=== PATIENT | male | born 1955 | race Caucasian/White ===

== ENCOUNTER 2017-12-06 20:10 | Inpatient (IN) | payer OTHER ==
[2017-12-06] MEDS ORDERED: ONDANSETRON 4 MG TAB PO (22:30)
[2017-12-06] MEDS ORDERED: GLUCOSE GEL 15 GRAM TUBE PO ×2 (23:00)
[2017-12-06] MEDS ORDERED: DEXTROSE 50% 50 ML SYRINGE IV ×2 (23:00)
[2017-12-06] MEDS ORDERED: BISACODYL 10 MG SUPP PR (23:00)
[2017-12-06] MEDS ORDERED: GLUCAGON 1 MG INJ IM (23:00)
[2017-12-06] MEDS ORDERED: GLUCOSE GEL 15 GRAM TUBE BUCCAL (23:00)
[2017-12-07 00:51] LABS: ADD UMIC NO; UR ASCORBIC ACID NEGATIVE (NEGATIVE); UR BILIRUBIN (Dip) NEGATIVE (NEGATIVE); UR BLOOD (Dip) NEGATIVE (NEGATIVE); UR CLARITY CLEAR (CLEAR); UR COLOR YELLOW (YELLOW); UR GLUCOSE (Dip) NEGATIVE (NEGATIVE); UR KETONES (Dip) NEGATIVE (NEGATIVE); UR LEUKOCYTE ESTERASE (Dip) NEGATIVE Leu/ul (NEGATIVE); UR NITRITE (Dip) NEGATIVE (NEGATIVE); UR SPECIFIC GRAVITY (Dip) 1.025 (1.003-1.030); UR TOTAL PROTEIN (Dip) NEGATIVE (NEGATIVE); UR UROBILINOGEN (Dip) 2+ mg/dL (NEGATIVE)
[2017-12-07] MEDS: ACCUCHECK AT 2AM (Patients on SS coverage) XX (02:00)
[2017-12-07] MEDS: Insulin NOVOLOG SS MILD Algorithm (SS with meals and bedtime) SC ×4 (07:05→20:45)
[2017-12-07 07:06] LABS: ADD MAN DIFF? NO
[2017-12-07 07:08] LABS: BASOPHILS % 0.3 % (0.0-2.0); EOSINOPHILS # 0.1 10^3/ul (0.0-0.5); EOSINOPHILS % 1.1 % (0.0-7.0); HEMATOCRIT 44.3 % (42.0-52.0); HEMOGLOBIN 15.3 g/dl (14.0-18.0); LYMPHOCYTES # 1.5 10^3/ul (0.8-2.9); LYMPHOCYTES % 11.9 % (15.0-51.0); MEAN CORPUSCULAR HEMOGLOBIN 32.9 pg (29.0-33.0); MEAN CORPUSCULAR HGB CONC 34.5 g/dl (32.0-37.0); MEAN CORPUSCULAR VOLUME 95.3 fl (82.0-101.0); MEAN PLATELET VOLUME 9.4 fl (7.4-10.4); MONOCYTE # 0.9 10^3/ul (0.3-0.9); NEUTROPHIL # 9.9 10^3/ul (1.6-7.5); NEUTROPHILS % 79.2 % (39.0-77.0); PLATELET COUNT 249 10^3/UL (140-415); RED BLOOD COUNT 4.65 10^6/ul (4.70-6.10); RED CELL DISTRIBUTION WIDTH 13.8 % (11.5-14.5)
[2017-12-07 07:08] LABS: WHITE BLOOD COUNT 12.5 10^3/ul (4.8-10.8)
[2017-12-07] MEDS: ACCU-CHEK XX ×4 (07:45→20:47)
[2017-12-07 07:55] LABS: ALANINE AMINOTRANSFERASE 35 IU/L (13-69); ALBUMIN 3.9 g/dl (3.3-4.9); ALBUMIN/GLOBULIN RATIO 1.44; ALKALINE PHOSPHATASE 93 IU/L (42-121); ANION GAP 13 (8-16); ASPARTATE AMINO TRANSFERASE 43 IU/L (15-46); BILIRUBIN,INDIRECT 0.8 mg/dl (0-1.1); BILIRUBIN,TOTAL 0.8 mg/dl (0.2-1.3); BLOOD UREA NITROGEN 42 mg/dl (7-20); CALCIUM 9.5 mg/dl (8.4-10.2); CARBON DIOXIDE 27 mmol/L (21-31); CHLORIDE 100 mmol/L (97-110); CREATININE 0.91 mg/dl (0.61-1.24); GLUCOSE 137 mg/dl (70-220); POTASSIUM 4.1 mmol/L (3.5-5.1); SODIUM 136 mmol/L (135-144); TOTAL PROTEIN 6.6 g/dl (6.1-8.1)
[2017-12-07] MEDS: CLOPIDOGREL 75 MG TAB PO (08:42)
[2017-12-07] MEDS: ESCITALOPRAM 10 MG TAB PO (08:43)
[2017-12-07] MEDS: AMLODIPINE 10 MG TAB PO (08:43)
[2017-12-07] MEDS: HYDROCHLOROTHIAZIDE 25 MG TAB PO (08:43)
[2017-12-07] MEDS: ASPIRIN (EC) 81 MG TAB PO (08:43)
[2017-12-07] MEDS: DOCUSATE SODIUM 100 MG CAP PO ×2 (08:43→20:42)
[2017-12-07] MEDS: metFORMIN 500 MG TAB PO (08:44)
[2017-12-07] MEDS: METOPROLOL (XL) 100 MG TAB PO (08:44)
[2017-12-07] MEDS: ATORVASTATIN 80 MG TAB PO (20:42)
[2017-12-07] MEDS: SENNA TAB PO (20:42)
[2017-12-08] MEDS: ACCUCHECK AT 2AM (Patients on SS coverage) XX (02:00)
[2017-12-08] MEDS: Insulin NOVOLOG SS MILD Algorithm (SS with meals and bedtime) SC ×3 (08:35→21:00)
[2017-12-08] MEDS: ACCU-CHEK XX ×3 (08:35→21:00)
[2017-12-08] MEDS: ESCITALOPRAM 10 MG TAB PO (10:57)
[2017-12-08] MEDS: CLOPIDOGREL 75 MG TAB PO (10:57)
[2017-12-08] MEDS: DOCUSATE SODIUM 100 MG CAP PO ×2 (10:58→21:00)
[2017-12-08] MEDS: ASPIRIN (EC) 81 MG TAB PO (10:58)
[2017-12-08] MEDS: AMLODIPINE 10 MG TAB PO (10:59)
[2017-12-08] MEDS: METOPROLOL (XL) 100 MG TAB PO (11:02)
[2017-12-08] MEDS: HYDROCHLOROTHIAZIDE 25 MG TAB PO (11:03)
[2017-12-08] MEDS: SENNA TAB PO (21:00)
[2017-12-08] MEDS: ATORVASTATIN 80 MG TAB PO (21:00)
[2017-12-09] MEDS: ACCUCHECK AT 2AM (Patients on SS coverage) XX (01:01)
[2017-12-09] MEDS: ACCU-CHEK XX ×4 (07:05→21:21)
[2017-12-09] MEDS: Insulin NOVOLOG SS MILD Algorithm (SS with meals and bedtime) SC ×4 (07:05→21:00)
[2017-12-09] MEDS: CLOPIDOGREL 75 MG TAB PO (08:21)
[2017-12-09] MEDS: HYDROCHLOROTHIAZIDE 25 MG TAB PO (08:21)
[2017-12-09] MEDS: AMLODIPINE 10 MG TAB PO (08:21)
[2017-12-09] MEDS: DOCUSATE SODIUM 100 MG CAP PO ×2 (08:21→21:00)
[2017-12-09] MEDS: ASPIRIN (EC) 81 MG TAB PO (08:21)
[2017-12-09] MEDS: METOPROLOL (XL) 100 MG TAB PO (08:21)
[2017-12-09] MEDS: ESCITALOPRAM 10 MG TAB PO (08:21)
[2017-12-09] MEDS: LEVOFLOXACIN 500 MG TAB PO (15:13)
[2017-12-09] MEDS: SENNA TAB PO (21:00)
[2017-12-09] MEDS: ATORVASTATIN 80 MG TAB PO (21:16)
[2017-12-10] MEDS: ACCUCHECK AT 2AM (Patients on SS coverage) XX (02:00)
[2017-12-10] MEDS: LEVOFLOXACIN 500 MG TAB PO (06:14)
[2017-12-10] MEDS: Insulin NOVOLOG SS MILD Algorithm (SS with meals and bedtime) SC ×4 (07:05→21:00)
[2017-12-10] MEDS: ACCU-CHEK XX ×4 (08:05→21:26)
[2017-12-10] MEDS: CLOPIDOGREL 75 MG TAB PO (08:30)
[2017-12-10] MEDS: ASPIRIN (EC) 81 MG TAB PO (08:30)
[2017-12-10] MEDS: DOCUSATE SODIUM 100 MG CAP PO ×2 (08:30→21:26)
[2017-12-10] MEDS: AMLODIPINE 10 MG TAB PO (08:31)
[2017-12-10] MEDS: ESCITALOPRAM 10 MG TAB PO (08:31)
[2017-12-10] MEDS: METOPROLOL (XL) 100 MG TAB PO (08:32)
[2017-12-10] MEDS: HYDROCHLOROTHIAZIDE 25 MG TAB PO (08:32)
[2017-12-10] MEDS: metFORMIN (XR) 500 MG TAB PO ×2 (11:00→21:26)
[2017-12-10] MEDS: ATORVASTATIN 80 MG TAB PO (21:26)
[2017-12-10] MEDS: SENNA TAB PO (21:26)
[2017-12-11] MEDS: ACCUCHECK AT 2AM (Patients on SS coverage) XX (00:15)
[2017-12-11 06:59] LABS: ADD MAN DIFF? NO
[2017-12-11] MEDS: LEVOFLOXACIN 500 MG TAB PO (07:02)
[2017-12-11] MEDS: ACCU-CHEK XX ×4 (07:05→20:59)
[2017-12-11 07:06] LABS: BASOPHIL # 0.1 10^3/ul (0.0-0.1); BASOPHILS % 0.5 % (0.0-2.0); EOSINOPHILS # 0.2 10^3/ul (0.0-0.5); EOSINOPHILS % 2.1 % (0.0-7.0); HEMATOCRIT 45.6 % (42.0-52.0); HEMOGLOBIN 15.9 g/dl (14.0-18.0); LYMPHOCYTES # 2.7 10^3/ul (0.8-2.9); LYMPHOCYTES % 26.3 % (15.0-51.0); MEAN CORPUSCULAR HEMOGLOBIN 32.9 pg (29.0-33.0); MEAN CORPUSCULAR HGB CONC 34.9 g/dl (32.0-37.0); MEAN CORPUSCULAR VOLUME 94.2 fl (82.0-101.0); MEAN PLATELET VOLUME 9.2 fl (7.4-10.4); MONOCYTE # 0.9 10^3/ul (0.3-0.9); MONOCYTES % 8.6 % (0.0-11.0); NEUTROPHIL # 6.2 10^3/ul (1.6-7.5); NEUTROPHILS % 61.9 % (39.0-77.0); PLATELET COUNT 329 10^3/UL (140-415); RED BLOOD COUNT 4.84 10^6/ul (4.70-6.10); RED CELL DISTRIBUTION WIDTH 13.2 % (11.5-14.5)
[2017-12-11 07:06] LABS: WHITE BLOOD COUNT 10.1 10^3/ul (4.8-10.8)
[2017-12-11] MEDS: LORAZEPAM 2 MG INJ IM (07:27)
[2017-12-11 07:54] LABS: ALANINE AMINOTRANSFERASE 29 IU/L (13-69); ALBUMIN 3.5 g/dl (3.3-4.9); ALBUMIN/GLOBULIN RATIO 1.25; ALKALINE PHOSPHATASE 105 IU/L (42-121); ANION GAP 13 (8-16); ASPARTATE AMINO TRANSFERASE 25 IU/L (15-46); BILIRUBIN,INDIRECT 0.5 mg/dl (0-1.1); BILIRUBIN,TOTAL 0.5 mg/dl (0.2-1.3); BLOOD UREA NITROGEN 30 mg/dl (7-20); CALCIUM 9.6 mg/dl (8.4-10.2); CARBON DIOXIDE 28 mmol/L (21-31); CHLORIDE 102 mmol/L (97-110); GLUCOSE 138 mg/dl (70-220); POTASSIUM 3.8 mmol/L (3.5-5.1); SODIUM 139 mmol/L (135-144); TOTAL PROTEIN 6.3 g/dl (6.1-8.1)
[2017-12-11 08:03] LABS: MAGNESIUM 1.7 mg/dl (1.7-2.5)
[2017-12-11] MEDS: Insulin NOVOLOG SS MILD Algorithm (SS with meals and bedtime) SC ×4 (08:28→20:58)
[2017-12-11] MEDS: ESCITALOPRAM 10 MG TAB PO (08:38)
[2017-12-11] MEDS: HYDROCHLOROTHIAZIDE 25 MG TAB PO (08:38)
[2017-12-11] MEDS: CLOPIDOGREL 75 MG TAB PO (08:38)
[2017-12-11] MEDS: ASPIRIN (EC) 81 MG TAB PO (08:38)
[2017-12-11] MEDS: metFORMIN (XR) 500 MG TAB PO ×2 (08:39→20:40)
[2017-12-11] MEDS: AMLODIPINE 10 MG TAB PO (08:39)
[2017-12-11] MEDS: DOCUSATE SODIUM 100 MG CAP PO ×2 (08:39→20:40)
[2017-12-11] MEDS: METOPROLOL (XL) 100 MG TAB PO (08:43)
[2017-12-11] MEDS: LORAZEPAM 2 MG INJ IV (20:40)
[2017-12-11] MEDS: ATORVASTATIN 80 MG TAB PO (20:40)
[2017-12-11] MEDS: SENNA TAB PO (20:41)
[2017-12-11] MEDS: HALOPERIDOL 5 MG INJ IM (21:00)
[2017-12-12] MEDS: ACCUCHECK AT 2AM (Patients on SS coverage) XX (02:00)
[2017-12-12] MEDS: LEVOFLOXACIN 500 MG TAB PO (06:22)
[2017-12-12] MEDS: Insulin NOVOLOG SS MILD Algorithm (SS with meals and bedtime) SC ×4 (07:05→20:08)
[2017-12-12] MEDS: ACCU-CHEK XX ×4 (07:05→21:00)
[2017-12-12] MEDS: ASPIRIN (EC) 81 MG TAB PO ×2 (09:00→15:19)
[2017-12-12] MEDS: DOCUSATE SODIUM 100 MG CAP PO ×2 (09:00→20:06)
[2017-12-12] MEDS: AMLODIPINE 10 MG TAB PO (09:00)
[2017-12-12] MEDS: ESCITALOPRAM 10 MG TAB PO ×2 (09:00→15:20)
[2017-12-12] MEDS: METOPROLOL (XL) 100 MG TAB PO ×2 (09:00→15:22)
[2017-12-12] MEDS: metFORMIN (XR) 500 MG TAB PO ×2 (09:00→20:04)
[2017-12-12] MEDS: HYDROCHLOROTHIAZIDE 25 MG TAB PO (09:00)
[2017-12-12] MEDS: CLOPIDOGREL 75 MG TAB PO ×2 (09:00→15:20)
[2017-12-12] MEDS: ATORVASTATIN 80 MG TAB PO (20:06)
[2017-12-12] MEDS: SENNA TAB PO (20:06)
[2017-12-13] MEDS: ACCUCHECK AT 2AM (Patients on SS coverage) XX (02:00)
[2017-12-13] MEDS: LEVOFLOXACIN 500 MG TAB PO (06:13)
[2017-12-13] MEDS: ACCU-CHEK XX ×4 (07:05→21:00)
[2017-12-13] MEDS: Insulin NOVOLOG SS MILD Algorithm (SS with meals and bedtime) SC ×4 (07:05→21:00)
[2017-12-13] MEDS: CLOPIDOGREL 75 MG TAB PO (09:07)
[2017-12-13] MEDS: DOCUSATE SODIUM 100 MG CAP PO ×2 (09:08→21:00)
[2017-12-13] MEDS: HYDROCHLOROTHIAZIDE 25 MG TAB PO (09:08)
[2017-12-13] MEDS: metFORMIN (XR) 500 MG TAB PO ×2 (09:08→21:28)
[2017-12-13] MEDS: AMLODIPINE 10 MG TAB PO (09:08)
[2017-12-13] MEDS: METOPROLOL (XL) 100 MG TAB PO (09:08)
[2017-12-13] MEDS: ASPIRIN (EC) 81 MG TAB PO (09:08)
[2017-12-13] MEDS: ESCITALOPRAM 10 MG TAB PO (09:09)
[2017-12-13] MEDS: SENNA TAB PO (21:00)
[2017-12-13] MEDS: ACETAMINOPHEN 325 MG TAB PO (21:27)
[2017-12-13] MEDS: ATORVASTATIN 80 MG TAB PO (21:28)
[2017-12-14] MEDS: ACCUCHECK AT 2AM (Patients on SS coverage) XX (02:00)
[2017-12-14] MEDS: HYDROCODONE/APAP (5/325) TAB PO (03:28)
[2017-12-14] MEDS: LEVOFLOXACIN 500 MG TAB PO (06:39)
[2017-12-14] MEDS: ACCU-CHEK XX ×4 (07:05→21:09)
[2017-12-14] MEDS: Insulin NOVOLOG SS MILD Algorithm (SS with meals and bedtime) SC ×4 (07:05→20:56)
[2017-12-14] MEDS: metFORMIN (XR) 500 MG TAB PO ×2 (08:04→21:01)
[2017-12-14] MEDS: METOPROLOL (XL) 100 MG TAB PO (09:00)
[2017-12-14] MEDS: AMLODIPINE 10 MG TAB PO (09:13)
[2017-12-14] MEDS: ASPIRIN (EC) 81 MG TAB PO (09:13)
[2017-12-14] MEDS: CLOPIDOGREL 75 MG TAB PO (09:13)
[2017-12-14] MEDS: DOCUSATE SODIUM 100 MG CAP PO ×2 (09:13→21:02)
[2017-12-14] MEDS: HYDROCHLOROTHIAZIDE 25 MG TAB PO (09:13)
[2017-12-14] MEDS: ESCITALOPRAM 10 MG TAB PO (09:13)
[2017-12-14] MEDS: ACETAMINOPHEN 325 MG TAB PO ×2 (15:19→23:21)
[2017-12-14] MEDS: ATORVASTATIN 80 MG TAB PO (21:02)
[2017-12-14] MEDS: SENNA TAB PO (21:02)
[2017-12-15] MEDS: ACCUCHECK AT 2AM (Patients on SS coverage) XX (02:00)
[2017-12-15] MEDS: LEVOFLOXACIN 500 MG TAB PO (06:17)
[2017-12-15] MEDS: ACETAMINOPHEN 325 MG TAB PO (07:57)
[2017-12-15] MEDS: ACCU-CHEK XX ×4 (07:59→20:13)
[2017-12-15] MEDS: Insulin NOVOLOG SS MILD Algorithm (SS with meals and bedtime) SC ×4 (08:01→20:15)
[2017-12-15] MEDS: metFORMIN (XR) 500 MG TAB PO ×2 (08:31→20:11)
[2017-12-15] MEDS: ESCITALOPRAM 10 MG TAB PO (08:36)
[2017-12-15] MEDS: DOCUSATE SODIUM 100 MG CAP PO ×2 (08:36→20:11)
[2017-12-15] MEDS: HYDROCHLOROTHIAZIDE 25 MG TAB PO (08:38)
[2017-12-15] MEDS: METOPROLOL (XL) 100 MG TAB PO (08:38)
[2017-12-15] MEDS: ASPIRIN (EC) 81 MG TAB PO (08:38)
[2017-12-15] MEDS: CLOPIDOGREL 75 MG TAB PO (08:39)
[2017-12-15] MEDS: AMLODIPINE 10 MG TAB PO (08:39)
[2017-12-15] MEDS: ATORVASTATIN 80 MG TAB PO (20:10)
[2017-12-15] MEDS: SENNA TAB PO (20:11)
[2017-12-16] MEDS: ACETAMINOPHEN 325 MG TAB PO ×3 (00:09→14:03)
[2017-12-16] MEDS: HALOPERIDOL 5 MG INJ IM (01:33)
[2017-12-16] MEDS: ACCUCHECK AT 2AM (Patients on SS coverage) XX (02:00)
[2017-12-16] MEDS: LEVOFLOXACIN 500 MG TAB PO (06:11)
[2017-12-16] MEDS ORDERED: METOPROLOL 5 MG INJ (07:00)
[2017-12-16] MEDS: ACCU-CHEK XX ×3 (07:36→17:20)
[2017-12-16] MEDS: metFORMIN (XR) 500 MG TAB PO (07:39)
[2017-12-16] MEDS: Insulin NOVOLOG SS MILD Algorithm (SS with meals and bedtime) SC ×3 (07:39→17:05)
[2017-12-16] MEDS: ASPIRIN (EC) 81 MG TAB PO (09:44)
[2017-12-16] MEDS: CLOPIDOGREL 75 MG TAB PO (09:46)
[2017-12-16] MEDS: ESCITALOPRAM 10 MG TAB PO (09:46)
[2017-12-16] MEDS: DOCUSATE SODIUM 100 MG CAP PO (09:51)
[2017-12-16] MEDS: HYDROCHLOROTHIAZIDE 25 MG TAB PO (09:51)
[2017-12-16] MEDS: METOPROLOL (XL) 100 MG TAB PO (09:52)
[2017-12-16] MEDS: AMLODIPINE 10 MG TAB PO (09:53)
[2017-12-16] MEDS: MAGNESIUM HYDROXIDE 30ML CUP PO (09:53)
[2017-12-16] MEDS: BACLOFEN 10 MG TAB PO (14:13)
[2017-12-16] MEDS ORDERED: METOPROLOL 5 MG INJ IV (18:25)
[2017-12-16 18:38] LABS: ADD MAN DIFF? NO
[2017-12-16 18:39] LABS: WHITE BLOOD COUNT 15.9 10^3/ul (4.8-10.8)
[2017-12-16 18:39] LABS: BASOPHIL # 0.1 10^3/ul (0.0-0.1); BASOPHILS % 0.3 % (0.0-2.0); EOSINOPHILS # 0.1 10^3/ul (0.0-0.5); EOSINOPHILS % 0.5 % (0.0-7.0); HEMATOCRIT 45.1 % (42.0-52.0); HEMOGLOBIN 15.8 g/dl (14.0-18.0); LYMPHOCYTES # 1.7 10^3/ul (0.8-2.9); MEAN CORPUSCULAR HEMOGLOBIN 32.4 pg (29.0-33.0); MEAN CORPUSCULAR VOLUME 92.6 fl (82.0-101.0); MONOCYTE # 0.7 10^3/ul (0.3-0.9); MONOCYTES % 4.5 % (0.0-11.0); NEUTROPHIL # 13.2 10^3/ul (1.6-7.5); NEUTROPHILS % 83.1 % (39.0-77.0); PLATELET COUNT 396 10^3/UL (140-415); RED BLOOD COUNT 4.87 10^6/ul (4.70-6.10); RED CELL DISTRIBUTION WIDTH 12.9 % (11.5-14.5)
[2017-12-16 18:52] LABS: ANION GAP 25 (8-16); BLOOD UREA NITROGEN 40 mg/dl (7-20); CALCIUM 9.4 mg/dl (8.4-10.2); CARBON DIOXIDE 19 mmol/L (21-31); CHLORIDE 96 mmol/L (97-110); CREATININE 1.55 mg/dl (0.61-1.24); GLUCOSE 193 mg/dl (70-220); POTASSIUM 3.9 mmol/L (3.5-5.1); SODIUM 136 mmol/L (135-144)
[2017-12-16 19:04] LABS: TROPONIN-I 0.014 ng/ml (0.000-0.120)
== END 2017-12-16 18:40 | disposition short-term general hospital (02) | DRG 57 ==
LOC: VRC 20:10 → 6WM 12-16 19:03 → VRC 12-16 19:03
PROVIDERS: Physical Medicine & Rehabilitation
PROC: F07Z8ZZ Transfer Training Treatment (ICD-10-PCS; principal; 2017-12-09)
PROC: F07Z5ZZ Bed Mobility Treatment (ICD-10-PCS; 2017-12-09)
PROC: F07Z9ZZ Gait Training/Functional Ambulation Treatment (ICD-10-PCS; 2017-12-09)
PROC: F08Z1ZZ Dressing Techniques Treatment (ICD-10-PCS; 2017-12-09)
PROC: F08Z2ZZ Grooming/Personal Hygiene Treatment (ICD-10-PCS; 2017-12-09)
DX: I69.354 Hemiplegia and hemiparesis following cerebral infarction affecting left non-dominant side (principal); N39.0 Urinary tract infection, site not specified; F33.9 Major depressive disorder, recurrent, unspecified; E78.5 Hyperlipidemia, unspecified; E11.9 Type 2 diabetes mellitus without complications; R13.10 Dysphagia, unspecified; I10 Essential (primary) hypertension; Z79.4 Long term (current) use of insulin
CPT/HCPCS: 80048; 80053; 81003; 82962; 83036; 83735; 84484; 85025; 87081; 87086; 92507; 92610; 97110; 97112; 97116; 97163; 97167; 97530; 97535; 97542

== ENCOUNTER 2017-12-16 20:23 | Inpatient (IN) | payer OTHER ==
[2017-12-16] MEDS ORDERED: GLUCAGON 1 MG INJ IM (23:45)
[2017-12-16] MEDS ORDERED: DEXTROSE 50% 50 ML SYRINGE IV ×2 (23:45)
[2017-12-16] MEDS ORDERED: GLUCOSE GEL 15 GRAM TUBE BUCCAL (23:45)
[2017-12-16] MEDS ORDERED: GLUCOSE GEL 15 GRAM TUBE PO ×2 (23:45)
[2017-12-17] MEDS: DEXTROSE 5%-0.45% NACL 1,000 ML IV ×2 (00:11→15:06)
[2017-12-17] MEDS: METOPROLOL 25 MG TAB PO (00:11)
[2017-12-17] MEDS: INSULIN ASPART [NOVOLOG] 3 ML PEN SC ×6 (01:49→21:00)
[2017-12-17] MEDS ORDERED: ACCU-CHEK XX (02:00)
[2017-12-17] MEDS ORDERED: NACL 0.9% 3 ML SYG IV (06:00)
[2017-12-17] MEDS ORDERED: NITROGLYCERIN (SL) 0.4 MG TAB SL (06:00)
[2017-12-17] MEDS ORDERED: BISACODYL 10 MG SUPP PR (06:00)
[2017-12-17] MEDS ORDERED: ONDANSETRON 4 MG INJ IV (06:00)
[2017-12-17 07:42] LABS: ADD MAN DIFF? NO
[2017-12-17 07:46] LABS: WHITE BLOOD COUNT 11.7 10^3/ul (4.8-10.8)
[2017-12-17 07:46] LABS: BASOPHIL # 0.1 10^3/ul (0.0-0.1); BASOPHILS % 0.4 % (0.0-2.0); EOSINOPHILS # 0.1 10^3/ul (0.0-0.5); MEAN CORPUSCULAR HEMOGLOBIN 32.1 pg (29.0-33.0); MEAN CORPUSCULAR VOLUME 91.7 fl (82.0-101.0); MEAN PLATELET VOLUME 9.4 fl (7.4-10.4); MONOCYTE # 0.8 10^3/ul (0.3-0.9); MONOCYTES % 7.2 % (0.0-11.0); NEUTROPHIL # 8.7 10^3/ul (1.6-7.5); PLATELET COUNT 327 10^3/UL (140-415); RED BLOOD COUNT 4.36 10^6/ul (4.70-6.10); RED CELL DISTRIBUTION WIDTH 13.1 % (11.5-14.5)
[2017-12-17] MEDS: CLOPIDOGREL 75 MG TAB PO (08:08)
[2017-12-17] MEDS: ASPIRIN (EC) 81 MG TAB PO (08:08)
[2017-12-17] MEDS: BACLOFEN 10 MG TAB PO ×2 (08:08→21:00)
[2017-12-17] MEDS: AMLODIPINE 10 MG TAB PO (08:08)
[2017-12-17] MEDS: DOCUSATE SODIUM 100 MG CAP PO ×2 (08:08→21:00)
[2017-12-17] MEDS: ESCITALOPRAM 10 MG TAB PO (08:08)
[2017-12-17] MEDS: HYDROCHLOROTHIAZIDE 25 MG TAB PO (08:09)
[2017-12-17] MEDS: METOPROLOL (XL) 100 MG TAB PO (08:13)
[2017-12-17 08:15] LABS: CREATINE KINASE 130 IU/L (23-200)
[2017-12-17 08:21] LABS: ALANINE AMINOTRANSFERASE 27 IU/L (13-69); ALBUMIN 3.5 g/dl (3.3-4.9); ALBUMIN/GLOBULIN RATIO 1.59; ALKALINE PHOSPHATASE 149 IU/L (42-121); ANION GAP 14 (8-16); ASPARTATE AMINO TRANSFERASE 31 IU/L (15-46); BILIRUBIN,INDIRECT 0.3 mg/dl (0-1.1); BILIRUBIN,TOTAL 0.3 mg/dl (0.2-1.3); BLOOD UREA NITROGEN 48 mg/dl (7-20); CALCIUM 9.2 mg/dl (8.4-10.2); CARBON DIOXIDE 28 mmol/L (21-31); CHLORIDE 100 mmol/L (97-110); CREATININE 1.25 mg/dl (0.61-1.24); GLUCOSE 117 mg/dl (70-220); POTASSIUM 3.5 mmol/L (3.5-5.1); SODIUM 138 mmol/L (135-144); TOTAL PROTEIN 5.7 g/dl (6.1-8.1)
[2017-12-17 08:28] LABS: CK-MB 2.66 ng/ml (0.0-2.4); TROPONIN-I 0.028 ng/ml (0.000-0.120)
[2017-12-17 12:48] LABS: CREATINE KINASE 149 IU/L (23-200)
[2017-12-17 13:00] LABS: CK INDEX 1.9; CK-MB 2.89 ng/ml (0.0-2.4); TROPONIN-I 0.016 ng/ml (0.000-0.120)
[2017-12-17] MEDS: SENNA TAB PO (21:00)
[2017-12-17] MEDS: ATORVASTATIN 80 MG TAB PO (21:00)
[2017-12-18] MEDS: INSULIN ASPART [NOVOLOG] 3 ML PEN SC ×5 (01:00→17:27)
[2017-12-18] MEDS: DEXTROSE 5%-0.45% NACL 1,000 ML IV ×2 (05:42→17:27)
[2017-12-18 06:13] LABS: ADD MAN DIFF? NO
[2017-12-18 06:24] LABS: WHITE BLOOD COUNT 16.8 10^3/ul (4.8-10.8)
[2017-12-18 06:24] LABS: BASOPHIL # 0.1 10^3/ul (0.0-0.1); BASOPHILS % 0.3 % (0.0-2.0); EOSINOPHILS # 0.1 10^3/ul (0.0-0.5); EOSINOPHILS % 0.4 % (0.0-7.0); HEMATOCRIT 40.2 % (42.0-52.0); LYMPHOCYTES # 2.2 10^3/ul (0.8-2.9); MEAN CORPUSCULAR HEMOGLOBIN 32.6 pg (29.0-33.0); MEAN CORPUSCULAR HGB CONC 34.8 g/dl (32.0-37.0); MEAN CORPUSCULAR VOLUME 93.7 fl (82.0-101.0); MEAN PLATELET VOLUME 9.8 fl (7.4-10.4); MONOCYTES % 6.1 % (0.0-11.0); NEUTROPHIL # 13.4 10^3/ul (1.6-7.5); NEUTROPHILS % 79.5 % (39.0-77.0); PLATELET COUNT 331 10^3/UL (140-415); RED BLOOD COUNT 4.29 10^6/ul (4.70-6.10); RED CELL DISTRIBUTION WIDTH 13.2 % (11.5-14.5)
[2017-12-18 06:46] LABS: ANION GAP 16 (8-16); BLOOD UREA NITROGEN 52 mg/dl (7-20); CALCIUM 9.6 mg/dl (8.4-10.2); CARBON DIOXIDE 29 mmol/L (21-31); CHLORIDE 99 mmol/L (97-110); CREATININE 1.44 mg/dl (0.61-1.24); GLUCOSE 121 mg/dl (70-220); MAGNESIUM 2.4 mg/dl (1.7-2.5); PHOSPHORUS 4.1 mg/dl (2.5-4.9); POTASSIUM 3.8 mmol/L (3.5-5.1); SODIUM 140 mmol/L (135-144)
[2017-12-18] MEDS: CLOPIDOGREL 75 MG TAB PO (09:07)
[2017-12-18] MEDS: AMLODIPINE 10 MG TAB PO (09:08)
[2017-12-18] MEDS: ASPIRIN (EC) 81 MG TAB PO (09:08)
[2017-12-18] MEDS: DOCUSATE SODIUM 100 MG CAP PO ×2 (09:09→21:39)
[2017-12-18] MEDS: HYDROCHLOROTHIAZIDE 25 MG TAB PO (09:09)
[2017-12-18] MEDS: BACLOFEN 10 MG TAB PO ×2 (09:09→21:39)
[2017-12-18] MEDS: METOPROLOL (XL) 100 MG TAB PO (09:10)
[2017-12-18] MEDS: ESCITALOPRAM 10 MG TAB PO (09:10)
[2017-12-18] MEDS: ACETAMINOPHEN 325 MG TAB PO (09:11)
[2017-12-18] MEDS: Insulin NOVOLOG SS MILD Algorithm (SS with meals and bedtime) SC (21:00)
[2017-12-18] MEDS ORDERED: INSULIN ASPART [NOVOLOG] 3 ML PEN SC (21:00)
[2017-12-18] MEDS: ATORVASTATIN 80 MG TAB PO (21:38)
[2017-12-18] MEDS: SENNA TAB PO (21:38)
[2017-12-18] MEDS: LORAZEPAM 2 MG INJ IV (21:39)
[2017-12-19] MEDS: DEXTROSE 5%-0.45% NACL 1,000 ML IV ×2 (01:17→17:51)
[2017-12-19] MEDS: ACCUCHECK AT 2AM (Patients on SS coverage) XX (02:00)
[2017-12-19] MEDS: LORAZEPAM 2 MG INJ IV ×4 (03:44→22:50)
[2017-12-19 05:25] LABS: ADD MAN DIFF? NO
[2017-12-19 05:32] LABS: WHITE BLOOD COUNT 10.6 10^3/ul (4.8-10.8)
[2017-12-19 05:32] LABS: BASOPHILS % 0.3 % (0.0-2.0); EOSINOPHILS # 0.1 10^3/ul (0.0-0.5); EOSINOPHILS % 0.9 % (0.0-7.0); HEMATOCRIT 33.9 % (42.0-52.0); HEMOGLOBIN 12.1 g/dl (14.0-18.0); LYMPHOCYTES # 1.7 10^3/ul (0.8-2.9); LYMPHOCYTES % 15.5 % (15.0-51.0); MEAN CORPUSCULAR HEMOGLOBIN 32.6 pg (29.0-33.0); MEAN CORPUSCULAR HGB CONC 35.7 g/dl (32.0-37.0); MEAN CORPUSCULAR VOLUME 91.4 fl (82.0-101.0); MEAN PLATELET VOLUME 9.8 fl (7.4-10.4); MONOCYTE # 0.7 10^3/ul (0.3-0.9); NEUTROPHIL # 8.1 10^3/ul (1.6-7.5); NEUTROPHILS % 75.6 % (39.0-77.0); PLATELET COUNT 272 10^3/UL (140-415); RED BLOOD COUNT 3.71 10^6/ul (4.70-6.10)
[2017-12-19 06:45] LABS: ANION GAP 9 (8-16); BLOOD UREA NITROGEN 38 mg/dl (7-20); CALCIUM 8.8 mg/dl (8.4-10.2); CARBON DIOXIDE 30 mmol/L (21-31); CHLORIDE 99 mmol/L (97-110); CREATININE 0.86 mg/dl (0.61-1.24); GLUCOSE 132 mg/dl (70-220); SODIUM 136 mmol/L (135-144)
[2017-12-19 06:58] LABS: POTASSIUM 2.4 mmol/L (3.5-5.1)
[2017-12-19] MEDS ORDERED: POTASSIUM CHLORIDE (SR) 20 MEQ TAB PO ×2 (07:00→07:04)
[2017-12-19] MEDS: POTASSIUM CHLORIDE (SR) 20 MEQ TAB PO ×2 (07:44→09:01)
[2017-12-19] MEDS: Insulin NOVOLOG SS MILD Algorithm (SS with meals and bedtime) SC ×4 (07:48→20:51)
[2017-12-19 07:58] LABS: MAGNESIUM 1.9 mg/dl (1.7-2.5)
[2017-12-19] MEDS: ASPIRIN (EC) 81 MG TAB PO (08:58)
[2017-12-19] MEDS: HYDROCHLOROTHIAZIDE 25 MG TAB PO (08:58)
[2017-12-19] MEDS: METOPROLOL (XL) 100 MG TAB PO (08:59)
[2017-12-19] MEDS: DOCUSATE SODIUM 100 MG CAP PO ×2 (08:59→20:27)
[2017-12-19] MEDS: BACLOFEN 10 MG TAB PO ×2 (08:59→20:27)
[2017-12-19] MEDS: AMLODIPINE 10 MG TAB PO (08:59)
[2017-12-19] MEDS: ESCITALOPRAM 10 MG TAB PO (08:59)
[2017-12-19] MEDS: CLOPIDOGREL 75 MG TAB PO (08:59)
[2017-12-19] MEDS: ENOXAPARIN 40 MG/0.4 ML SYG SC (08:59)
[2017-12-19] MEDS: SENNA TAB PO (20:27)
[2017-12-19] MEDS: ATORVASTATIN 80 MG TAB PO (20:27)
[2017-12-19] MEDS: ACETAMINOPHEN 325 MG TAB PO (22:58)
[2017-12-20] MEDS: ACCUCHECK AT 2AM (Patients on SS coverage) XX (02:07)
[2017-12-20] MEDS: LORAZEPAM 2 MG INJ IV ×4 (02:29→22:50)
[2017-12-20 05:37] LABS: ADD MAN DIFF? NO
[2017-12-20 05:43] LABS: BASOPHILS % 0.3 % (0.0-2.0); EOSINOPHILS # 0.1 10^3/ul (0.0-0.5); HEMATOCRIT 32.3 % (42.0-52.0); HEMOGLOBIN 11.3 g/dl (14.0-18.0); LYMPHOCYTES # 1.6 10^3/ul (0.8-2.9); LYMPHOCYTES % 14.2 % (15.0-51.0); MEAN CORPUSCULAR HEMOGLOBIN 32.5 pg (29.0-33.0); MEAN CORPUSCULAR VOLUME 92.8 fl (82.0-101.0); MEAN PLATELET VOLUME 9.8 fl (7.4-10.4); MONOCYTE # 0.7 10^3/ul (0.3-0.9); MONOCYTES % 6.7 % (0.0-11.0); NEUTROPHIL # 8.5 10^3/ul (1.6-7.5); NEUTROPHILS % 77.4 % (39.0-77.0); PLATELET COUNT 243 10^3/UL (140-415); RED BLOOD COUNT 3.48 10^6/ul (4.70-6.10)
[2017-12-20 06:18] LABS: MAGNESIUM 1.7 mg/dl (1.7-2.5)
[2017-12-20 06:18] LABS: PHOSPHORUS 3.9 mg/dl (2.5-4.9)
[2017-12-20 06:26] LABS: ANION GAP 7 (8-16); BLOOD UREA NITROGEN 24 mg/dl (7-20); CALCIUM 9.3 mg/dl (8.4-10.2); CARBON DIOXIDE 31 mmol/L (21-31); CHLORIDE 102 mmol/L (97-110); CREATININE 0.72 mg/dl (0.61-1.24); GLUCOSE 127 mg/dl (70-220); POTASSIUM 3.2 mmol/L (3.5-5.1); SODIUM 137 mmol/L (135-144)
[2017-12-20] MEDS: ASPIRIN (EC) 81 MG TAB PO (08:26)
[2017-12-20] MEDS: DOCUSATE SODIUM 100 MG CAP PO ×2 (08:26→21:02)
[2017-12-20] MEDS: AMLODIPINE 10 MG TAB PO (08:27)
[2017-12-20] MEDS: CLOPIDOGREL 75 MG TAB PO (08:27)
[2017-12-20] MEDS: BACLOFEN 10 MG TAB PO ×2 (08:27→21:02)
[2017-12-20] MEDS: ESCITALOPRAM 10 MG TAB PO (08:27)
[2017-12-20] MEDS: HYDROCHLOROTHIAZIDE 25 MG TAB PO (08:28)
[2017-12-20] MEDS: METOPROLOL (XL) 100 MG TAB PO (08:28)
[2017-12-20] MEDS: ENOXAPARIN 40 MG/0.4 ML SYG SC (08:32)
[2017-12-20] MEDS: Insulin NOVOLOG SS MILD Algorithm (SS with meals and bedtime) SC ×4 (08:33→21:00)
[2017-12-20] MEDS: DEXTROSE 5%-0.45% NACL 1,000 ML IV (13:54)
[2017-12-20] MEDS: SENNA TAB PO (21:02)
[2017-12-20] MEDS: POTASSIUM CHLORIDE (SR) 20 MEQ TAB PO (21:02)
[2017-12-20] MEDS: ATORVASTATIN 80 MG TAB PO (21:02)
[2017-12-20] MEDS: MAGNESIUM SULFATE 2 GM/50 ML 50 ML IVPB (21:03)
[2017-12-21] MEDS: ACCUCHECK AT 2AM (Patients on SS coverage) XX (02:00)
[2017-12-21] MEDS: LORAZEPAM 2 MG INJ IV (02:46)
[2017-12-21] MEDS: HALOPERIDOL 5 MG INJ IM ×2 (03:20→20:45)
[2017-12-21] MEDS: DEXTROSE 5%-0.45% NACL 1,000 ML IV (04:06)
[2017-12-21 05:39] LABS: ADD MAN DIFF? NO
[2017-12-21 05:46] LABS: BASOPHILS % 0.3 % (0.0-2.0); EOSINOPHILS # 0.1 10^3/ul (0.0-0.5); EOSINOPHILS % 1.1 % (0.0-7.0); HEMATOCRIT 33.3 % (42.0-52.0); HEMOGLOBIN 11.7 g/dl (14.0-18.0); LYMPHOCYTES # 1.8 10^3/ul (0.8-2.9); LYMPHOCYTES % 18.1 % (15.0-51.0); MEAN CORPUSCULAR HEMOGLOBIN 32.7 pg (29.0-33.0); MEAN CORPUSCULAR HGB CONC 35.1 g/dl (32.0-37.0); MONOCYTE # 0.7 10^3/ul (0.3-0.9); MONOCYTES % 6.8 % (0.0-11.0); NEUTROPHIL # 7.3 10^3/ul (1.6-7.5); NEUTROPHILS % 73.3 % (39.0-77.0); PLATELET COUNT 247 10^3/UL (140-415); RED BLOOD COUNT 3.58 10^6/ul (4.70-6.10); RED CELL DISTRIBUTION WIDTH 13.1 % (11.5-14.5)
[2017-12-21 05:46] LABS: WHITE BLOOD COUNT 9.9 10^3/ul (4.8-10.8)
[2017-12-21 06:04] LABS: MAGNESIUM 2.2 mg/dl (1.7-2.5)
[2017-12-21 06:05] LABS: ANION GAP 9 (8-16); BLOOD UREA NITROGEN 17 mg/dl (7-20); CARBON DIOXIDE 33 mmol/L (21-31); CHLORIDE 99 mmol/L (97-110); CREATININE 0.62 mg/dl (0.61-1.24); GLUCOSE 141 mg/dl (70-220); SODIUM 138 mmol/L (135-144)
[2017-12-21] MEDS: Insulin NOVOLOG SS MILD Algorithm (SS with meals and bedtime) SC ×4 (07:59→21:00)
[2017-12-21] MEDS: DOCUSATE SODIUM 100 MG CAP PO ×2 (09:04→21:28)
[2017-12-21] MEDS: ASPIRIN (EC) 81 MG TAB PO (09:05)
[2017-12-21] MEDS: BACLOFEN 10 MG TAB PO ×2 (09:05→21:28)
[2017-12-21] MEDS: ESCITALOPRAM 10 MG TAB PO (09:05)
[2017-12-21] MEDS: CLOPIDOGREL 75 MG TAB PO (09:05)
[2017-12-21] MEDS: AMLODIPINE 10 MG TAB PO (09:05)
[2017-12-21] MEDS: HYDROCHLOROTHIAZIDE 25 MG TAB PO (09:05)
[2017-12-21] MEDS: METOPROLOL (XL) 100 MG TAB PO (09:06)
[2017-12-21] MEDS: ENOXAPARIN 40 MG/0.4 ML SYG SC (09:11)
[2017-12-21] MEDS: POTASSIUM CHLORIDE (SR) 20 MEQ TAB PO (15:02)
[2017-12-21] MEDS: QUETIAPINE 25 MG TAB PO (21:28)
[2017-12-21] MEDS: ATORVASTATIN 80 MG TAB PO (21:33)
[2017-12-21] MEDS: SENNA TAB PO (21:33)
[2017-12-22] MEDS: ACCUCHECK AT 2AM (Patients on SS coverage) XX (02:00)
[2017-12-22 06:13] LABS: ADD MAN DIFF? NO
[2017-12-22 06:20] LABS: WHITE BLOOD COUNT 8.8 10^3/ul (4.8-10.8)
[2017-12-22 06:20] LABS: BASOPHILS % 0.3 % (0.0-2.0); EOSINOPHILS # 0.2 10^3/ul (0.0-0.5); EOSINOPHILS % 1.8 % (0.0-7.0); HEMATOCRIT 36.9 % (42.0-52.0); HEMOGLOBIN 12.3 g/dl (14.0-18.0); LYMPHOCYTES % 22.5 % (15.0-51.0); MEAN CORPUSCULAR HGB CONC 33.3 g/dl (32.0-37.0); MEAN CORPUSCULAR VOLUME 96.1 fl (82.0-101.0); MEAN PLATELET VOLUME 10.1 fl (7.4-10.4); MONOCYTE # 0.6 10^3/ul (0.3-0.9); MONOCYTES % 6.7 % (0.0-11.0); NEUTROPHILS % 68.1 % (39.0-77.0); PLATELET COUNT 249 10^3/UL (140-415); RED BLOOD COUNT 3.84 10^6/ul (4.70-6.10); RED CELL DISTRIBUTION WIDTH 13.2 % (11.5-14.5)
[2017-12-22 06:40] LABS: ANION GAP 9 (8-16); BLOOD UREA NITROGEN 14 mg/dl (7-20); CALCIUM 9.3 mg/dl (8.4-10.2); CARBON DIOXIDE 33 mmol/L (21-31); CHLORIDE 101 mmol/L (97-110); CREATININE 0.61 mg/dl (0.61-1.24); POTASSIUM 3.8 mmol/L (3.5-5.1); SODIUM 139 mmol/L (135-144)
[2017-12-22 06:48] LABS: GLUCOSE 157 mg/dl (70-220)
[2017-12-22 06:57] LABS: PHOSPHORUS 3.7 mg/dl (2.5-4.9)
[2017-12-22 06:57] LABS: MAGNESIUM 1.8 mg/dl (1.7-2.5)
[2017-12-22] MEDS: HALOPERIDOL 5 MG INJ IM ×2 (07:37→15:16)
[2017-12-22] MEDS: QUETIAPINE 25 MG TAB PO ×2 (08:35→21:43)
[2017-12-22] MEDS: HYDROCHLOROTHIAZIDE 25 MG TAB PO (08:35)
[2017-12-22] MEDS: ASPIRIN (EC) 81 MG TAB PO (08:35)
[2017-12-22] MEDS: ESCITALOPRAM 10 MG TAB PO (08:35)
[2017-12-22] MEDS: BACLOFEN 10 MG TAB PO ×2 (08:35→21:43)
[2017-12-22] MEDS: AMLODIPINE 10 MG TAB PO (08:35)
[2017-12-22] MEDS: CLOPIDOGREL 75 MG TAB PO (08:36)
[2017-12-22] MEDS: DOCUSATE SODIUM 100 MG CAP PO ×2 (08:36→21:42)
[2017-12-22] MEDS: METOPROLOL (XL) 50 MG TAB PO (08:36)
[2017-12-22] MEDS: Insulin NOVOLOG SS MILD Algorithm (SS with meals and bedtime) SC ×4 (08:40→21:00)
[2017-12-22] MEDS: ENOXAPARIN 40 MG/0.4 ML SYG SC (08:41)
[2017-12-22] MEDS: SENNA TAB PO (21:42)
[2017-12-22] MEDS: ATORVASTATIN 80 MG TAB PO (21:43)
[2017-12-23] MEDS: ACCUCHECK AT 2AM (Patients on SS coverage) XX (02:00)
[2017-12-23 06:36] LABS: CHOLESTEROL 107 mg/dl (100-200)
[2017-12-23 06:36] LABS: CHOL/HDL RATIO 2.5 RATIO; HDL CHOLESTEROL 42 mg/dl (30-78); LDL CHOLESTEROL,CALCULATED 51 mg/dl; TRIGLYCERIDES 71 mg/dl (0-149)
[2017-12-23] MEDS: ASPIRIN (EC) 81 MG TAB PO (08:15)
[2017-12-23] MEDS: ESCITALOPRAM 10 MG TAB PO (08:15)
[2017-12-23] MEDS: AMLODIPINE 10 MG TAB PO (08:15)
[2017-12-23] MEDS: METOPROLOL (XL) 25 MG TAB PO (08:15)
[2017-12-23] MEDS: CLOPIDOGREL 75 MG TAB PO (08:15)
[2017-12-23] MEDS: DOCUSATE SODIUM 100 MG CAP PO ×2 (08:15→20:56)
[2017-12-23] MEDS: HYDROCHLOROTHIAZIDE 25 MG TAB PO (08:16)
[2017-12-23] MEDS: QUETIAPINE 25 MG TAB PO ×2 (08:16→20:56)
[2017-12-23] MEDS: BACLOFEN 10 MG TAB PO ×2 (08:16→20:56)
[2017-12-23] MEDS: ENOXAPARIN 40 MG/0.4 ML SYG SC (08:19)
[2017-12-23] MEDS: Insulin NOVOLOG SS MILD Algorithm (SS with meals and bedtime) SC ×4 (08:19→20:56)
[2017-12-23] MEDS: ATORVASTATIN 80 MG TAB PO (20:55)
[2017-12-23] MEDS: SENNA TAB PO (20:56)
[2017-12-24] MEDS: ACCUCHECK AT 2AM (Patients on SS coverage) XX (02:00)
[2017-12-24] MEDS: Insulin NOVOLOG SS MILD Algorithm (SS with meals and bedtime) SC ×4 (07:00→21:00)
[2017-12-24] MEDS: BACLOFEN 10 MG TAB PO ×2 (08:23→21:25)
[2017-12-24] MEDS: QUETIAPINE 25 MG TAB PO ×2 (08:23→21:25)
[2017-12-24] MEDS: ASPIRIN (EC) 81 MG TAB PO (08:23)
[2017-12-24] MEDS: CLOPIDOGREL 75 MG TAB PO (08:23)
[2017-12-24] MEDS: HYDROCHLOROTHIAZIDE 25 MG TAB PO (08:23)
[2017-12-24] MEDS: DOCUSATE SODIUM 100 MG CAP PO ×2 (08:23→21:25)
[2017-12-24] MEDS: ESCITALOPRAM 10 MG TAB PO (08:23)
[2017-12-24] MEDS: AMLODIPINE 10 MG TAB PO (08:24)
[2017-12-24] MEDS: METOPROLOL (XL) 25 MG TAB PO (08:24)
[2017-12-24] MEDS: ENOXAPARIN 40 MG/0.4 ML SYG SC (08:27)
[2017-12-24] MEDS: ATORVASTATIN 80 MG TAB PO (21:25)
[2017-12-24] MEDS: SENNA TAB PO (21:25)
[2017-12-25] MEDS: ACCUCHECK AT 2AM (Patients on SS coverage) XX (02:00)
[2017-12-25 05:42] LABS: ADD MAN DIFF? NO
[2017-12-25 05:56] LABS: WHITE BLOOD COUNT 9.9 10^3/ul (4.8-10.8)
[2017-12-25 05:56] LABS: BASOPHILS % 0.2 % (0.0-2.0); EOSINOPHILS # 0.2 10^3/ul (0.0-0.5); EOSINOPHILS % 1.5 % (0.0-7.0); HEMATOCRIT 33.2 % (42.0-52.0); HEMOGLOBIN 11.5 g/dl (14.0-18.0); LYMPHOCYTES # 2.2 10^3/ul (0.8-2.9); MEAN CORPUSCULAR HEMOGLOBIN 32.8 pg (29.0-33.0); MEAN CORPUSCULAR HGB CONC 34.6 g/dl (32.0-37.0); MEAN CORPUSCULAR VOLUME 94.6 fl (82.0-101.0); MONOCYTE # 0.9 10^3/ul (0.3-0.9); NEUTROPHIL # 6.7 10^3/ul (1.6-7.5); NEUTROPHILS % 66.9 % (39.0-77.0); PLATELET COUNT 278 10^3/UL (140-415); RED BLOOD COUNT 3.51 10^6/ul (4.70-6.10); RED CELL DISTRIBUTION WIDTH 13.2 % (11.5-14.5)
[2017-12-25 06:18] LABS: PHOSPHORUS 3.9 mg/dl (2.5-4.9)
[2017-12-25 06:18] LABS: MAGNESIUM 1.6 mg/dl (1.7-2.5)
[2017-12-25 06:21] LABS: ANION GAP 10 (8-16); BLOOD UREA NITROGEN 22 mg/dl (7-20); CALCIUM 9.4 mg/dl (8.4-10.2); CARBON DIOXIDE 33 mmol/L (21-31); CHLORIDE 100 mmol/L (97-110); GLUCOSE 155 mg/dl (70-220); POTASSIUM 4.3 mmol/L (3.5-5.1); SODIUM 139 mmol/L (135-144)
[2017-12-25] MEDS: ESCITALOPRAM 10 MG TAB PO (09:04)
[2017-12-25] MEDS: ASPIRIN (EC) 81 MG TAB PO (09:04)
[2017-12-25] MEDS: CLOPIDOGREL 75 MG TAB PO (09:04)
[2017-12-25] MEDS: AMLODIPINE 10 MG TAB PO (09:05)
[2017-12-25] MEDS: HYDROCHLOROTHIAZIDE 25 MG TAB PO (09:05)
[2017-12-25] MEDS: BACLOFEN 10 MG TAB PO ×2 (09:05→20:47)
[2017-12-25] MEDS: METOPROLOL (XL) 25 MG TAB PO (09:05)
[2017-12-25] MEDS: QUETIAPINE 25 MG TAB PO ×2 (09:05→20:47)
[2017-12-25] MEDS: DOCUSATE SODIUM 100 MG CAP PO ×2 (09:05→20:46)
[2017-12-25] MEDS: Insulin NOVOLOG SS MILD Algorithm (SS with meals and bedtime) SC ×4 (09:09→20:49)
[2017-12-25] MEDS: ENOXAPARIN 40 MG/0.4 ML SYG SC (09:10)
[2017-12-25] MEDS: MAGNESIUM SULFATE 2 GM/50 ML 50 ML IVPB (12:27)
[2017-12-25] MEDS: SENNA TAB PO (20:47)
[2017-12-25] MEDS: ATORVASTATIN 80 MG TAB PO (20:47)
[2017-12-26] MEDS: ACCUCHECK AT 2AM (Patients on SS coverage) XX (02:00)
[2017-12-26 06:04] LABS: MAGNESIUM 2.1 mg/dl (1.7-2.5)
[2017-12-26] MEDS: Insulin NOVOLOG SS MILD Algorithm (SS with meals and bedtime) SC ×4 (07:00→20:35)
[2017-12-26] MEDS: AMLODIPINE 10 MG TAB PO (08:44)
[2017-12-26] MEDS: ESCITALOPRAM 10 MG TAB PO (08:44)
[2017-12-26] MEDS: QUETIAPINE 25 MG TAB PO ×2 (08:44→20:30)
[2017-12-26] MEDS: CLOPIDOGREL 75 MG TAB PO (08:44)
[2017-12-26] MEDS: ASPIRIN (EC) 81 MG TAB PO (08:44)
[2017-12-26] MEDS: DOCUSATE SODIUM 100 MG CAP PO ×2 (08:44→20:30)
[2017-12-26] MEDS: HYDROCHLOROTHIAZIDE 25 MG TAB PO (08:45)
[2017-12-26] MEDS: BACLOFEN 10 MG TAB PO ×2 (08:45→20:35)
[2017-12-26] MEDS: METOPROLOL (XL) 25 MG TAB PO (08:46)
[2017-12-26] MEDS: ENOXAPARIN 40 MG/0.4 ML SYG SC (08:52)
[2017-12-26] MEDS: ATORVASTATIN 80 MG TAB PO (20:30)
[2017-12-26] MEDS: SENNA TAB PO (20:30)
[2017-12-27] MEDS: HALOPERIDOL 5 MG INJ IM (00:26)
[2017-12-27] MEDS: ACCUCHECK AT 2AM (Patients on SS coverage) XX (02:00)
[2017-12-27 05:36] LABS: ADD MAN DIFF? NO
[2017-12-27 05:39] LABS: WHITE BLOOD COUNT 7.7 10^3/ul (4.8-10.8)
[2017-12-27 05:39] LABS: BASOPHILS % 0.4 % (0.0-2.0); EOSINOPHILS # 0.2 10^3/ul (0.0-0.5); EOSINOPHILS % 2.5 % (0.0-7.0); HEMATOCRIT 34.4 % (42.0-52.0); HEMOGLOBIN 11.7 g/dl (14.0-18.0); LYMPHOCYTES # 1.9 10^3/ul (0.8-2.9); LYMPHOCYTES % 24.6 % (15.0-51.0); MEAN CORPUSCULAR HEMOGLOBIN 32.1 pg (29.0-33.0); MEAN CORPUSCULAR VOLUME 94.5 fl (82.0-101.0); MEAN PLATELET VOLUME 9.7 fl (7.4-10.4); MONOCYTE # 0.7 10^3/ul (0.3-0.9); NEUTROPHIL # 4.9 10^3/ul (1.6-7.5); NEUTROPHILS % 63.1 % (39.0-77.0); PLATELET COUNT 276 10^3/UL (140-415); RED BLOOD COUNT 3.64 10^6/ul (4.70-6.10); RED CELL DISTRIBUTION WIDTH 13.2 % (11.5-14.5)
[2017-12-27 06:08] LABS: ANION GAP 14 (8-16); BLOOD UREA NITROGEN 24 mg/dl (7-20); CALCIUM 9.4 mg/dl (8.4-10.2); CARBON DIOXIDE 27 mmol/L (21-31); CHLORIDE 102 mmol/L (97-110); CREATININE 0.89 mg/dl (0.61-1.24); GLUCOSE 152 mg/dl (70-220); SODIUM 139 mmol/L (135-144)
[2017-12-27] MEDS: Insulin NOVOLOG SS MILD Algorithm (SS with meals and bedtime) SC ×4 (07:00→21:00)
[2017-12-27] MEDS: CLOPIDOGREL 75 MG TAB PO (09:26)
[2017-12-27] MEDS: ASPIRIN (EC) 81 MG TAB PO (09:26)
[2017-12-27] MEDS: BACLOFEN 10 MG TAB PO ×2 (09:28→21:18)
[2017-12-27] MEDS: HYDROCHLOROTHIAZIDE 25 MG TAB PO (09:28)
[2017-12-27] MEDS: QUETIAPINE 25 MG TAB PO ×2 (09:28→21:18)
[2017-12-27] MEDS: ESCITALOPRAM 10 MG TAB PO (09:28)
[2017-12-27] MEDS: METOPROLOL (XL) 25 MG TAB PO (09:29)
[2017-12-27] MEDS: AMLODIPINE 10 MG TAB PO (09:29)
[2017-12-27] MEDS: ENOXAPARIN 40 MG/0.4 ML SYG SC (09:30)
[2017-12-27] MEDS: DOCUSATE SODIUM 100 MG CAP PO ×2 (09:39→21:18)
[2017-12-27] MEDS: SENNA TAB PO (21:18)
[2017-12-27] MEDS: ATORVASTATIN 80 MG TAB PO (21:18)
[2017-12-28] MEDS: ACCUCHECK AT 2AM (Patients on SS coverage) XX (01:07)
[2017-12-28 06:12] LABS: ADD MAN DIFF? NO
[2017-12-28 06:21] LABS: BASOPHILS % 0.4 % (0.0-2.0); EOSINOPHILS # 0.2 10^3/ul (0.0-0.5); EOSINOPHILS % 1.9 % (0.0-7.0); HEMATOCRIT 31.4 % (42.0-52.0); HEMOGLOBIN 10.9 g/dl (14.0-18.0); LYMPHOCYTES # 1.4 10^3/ul (0.8-2.9); LYMPHOCYTES % 17.7 % (15.0-51.0); MEAN CORPUSCULAR HEMOGLOBIN 32.5 pg (29.0-33.0); MEAN CORPUSCULAR HGB CONC 34.7 g/dl (32.0-37.0); MEAN CORPUSCULAR VOLUME 93.7 fl (82.0-101.0); MEAN PLATELET VOLUME 9.8 fl (7.4-10.4); MONOCYTE # 0.7 10^3/ul (0.3-0.9); MONOCYTES % 8.7 % (0.0-11.0); NEUTROPHIL # 5.7 10^3/ul (1.6-7.5); NEUTROPHILS % 71.1 % (39.0-77.0); PLATELET COUNT 271 10^3/UL (140-415); RED BLOOD COUNT 3.35 10^6/ul (4.70-6.10); RED CELL DISTRIBUTION WIDTH 13.3 % (11.5-14.5)
[2017-12-28 06:21] LABS: WHITE BLOOD COUNT 8.1 10^3/ul (4.8-10.8)
[2017-12-28 06:47] LABS: ANION GAP 11 (8-16); BLOOD UREA NITROGEN 35 mg/dl (7-20); CALCIUM 9.5 mg/dl (8.4-10.2); CARBON DIOXIDE 31 mmol/L (21-31); CHLORIDE 102 mmol/L (97-110); CREATININE 0.96 mg/dl (0.61-1.24); GLUCOSE 152 mg/dl (70-220); POTASSIUM 3.8 mmol/L (3.5-5.1); SODIUM 140 mmol/L (135-144)
[2017-12-28] MEDS: Insulin NOVOLOG SS MILD Algorithm (SS with meals and bedtime) SC ×4 (07:00→20:18)
[2017-12-28] MEDS: METOPROLOL (XL) 25 MG TAB PO (08:15)
[2017-12-28] MEDS: ESCITALOPRAM 10 MG TAB PO (08:15)
[2017-12-28] MEDS: CLOPIDOGREL 75 MG TAB PO (08:15)
[2017-12-28] MEDS: ASPIRIN (EC) 81 MG TAB PO (08:15)
[2017-12-28] MEDS: AMLODIPINE 10 MG TAB PO (08:16)
[2017-12-28] MEDS: DOCUSATE SODIUM 100 MG CAP PO ×2 (08:16→20:18)
[2017-12-28] MEDS: BACLOFEN 10 MG TAB PO ×2 (08:16→20:18)
[2017-12-28] MEDS: QUETIAPINE 25 MG TAB PO ×2 (08:16→20:18)
[2017-12-28] MEDS: HYDROCHLOROTHIAZIDE 25 MG TAB PO (08:16)
[2017-12-28] MEDS: ENOXAPARIN 40 MG/0.4 ML SYG SC (08:22)
[2017-12-28] MEDS: SENNA TAB PO (20:18)
[2017-12-28] MEDS: ATORVASTATIN 80 MG TAB PO (20:18)
[2017-12-29] MEDS: ACCUCHECK AT 2AM (Patients on SS coverage) XX (02:00)
[2017-12-29] MEDS: HALOPERIDOL 5 MG INJ IM (02:16)
[2017-12-29 06:30] LABS: ADD MAN DIFF? NO
[2017-12-29 06:36] LABS: WHITE BLOOD COUNT 8.5 10^3/ul (4.8-10.8)
[2017-12-29 06:36] LABS: BASOPHILS % 0.2 % (0.0-2.0); EOSINOPHILS # 0.2 10^3/ul (0.0-0.5); EOSINOPHILS % 2.2 % (0.0-7.0); HEMATOCRIT 32.5 % (42.0-52.0); HEMOGLOBIN 11.1 g/dl (14.0-18.0); LYMPHOCYTES # 1.5 10^3/ul (0.8-2.9); LYMPHOCYTES % 17.8 % (15.0-51.0); MEAN CORPUSCULAR HEMOGLOBIN 32.2 pg (29.0-33.0); MEAN CORPUSCULAR HGB CONC 34.2 g/dl (32.0-37.0); MEAN CORPUSCULAR VOLUME 94.2 fl (82.0-101.0); MEAN PLATELET VOLUME 9.5 fl (7.4-10.4); MONOCYTE # 0.7 10^3/ul (0.3-0.9); MONOCYTES % 8.7 % (0.0-11.0); NEUTROPHILS % 70.7 % (39.0-77.0); PLATELET COUNT 278 10^3/UL (140-415); RED BLOOD COUNT 3.45 10^6/ul (4.70-6.10); RED CELL DISTRIBUTION WIDTH 13.2 % (11.5-14.5)
[2017-12-29] MEDS: Insulin NOVOLOG SS MILD Algorithm (SS with meals and bedtime) SC ×4 (07:00→20:18)
[2017-12-29 07:14] LABS: ANION GAP 13 (8-16); BLOOD UREA NITROGEN 29 mg/dl (7-20); CALCIUM 9.4 mg/dl (8.4-10.2); CARBON DIOXIDE 28 mmol/L (21-31); CHLORIDE 99 mmol/L (97-110); CREATININE 0.82 mg/dl (0.61-1.24); GLUCOSE 168 mg/dl (70-220); POTASSIUM 3.9 mmol/L (3.5-5.1); SODIUM 136 mmol/L (135-144)
[2017-12-29] MEDS: AMLODIPINE 10 MG TAB PO (08:28)
[2017-12-29] MEDS: HYDROCHLOROTHIAZIDE 25 MG TAB PO (08:28)
[2017-12-29] MEDS: DOCUSATE SODIUM 100 MG CAP PO ×2 (08:28→20:17)
[2017-12-29] MEDS: ESCITALOPRAM 10 MG TAB PO (08:28)
[2017-12-29] MEDS: ASPIRIN (EC) 81 MG TAB PO (08:28)
[2017-12-29] MEDS: CLOPIDOGREL 75 MG TAB PO (08:28)
[2017-12-29] MEDS: METOPROLOL (XL) 25 MG TAB PO (08:29)
[2017-12-29] MEDS: QUETIAPINE 25 MG TAB PO (08:29)
[2017-12-29] MEDS: BACLOFEN 10 MG TAB PO ×2 (08:29→20:17)
[2017-12-29] MEDS: ENOXAPARIN 40 MG/0.4 ML SYG SC (08:37)
[2017-12-29] MEDS: ACETAMINOPHEN 325 MG TAB PO (16:53)
[2017-12-29] MEDS: morphine 2 MG INJ IV (17:42)
[2017-12-29] MEDS: SENNA TAB PO (20:17)
[2017-12-29] MEDS: ATORVASTATIN 80 MG TAB PO (20:17)
[2017-12-30] MEDS: ACCUCHECK AT 2AM (Patients on SS coverage) XX (01:28)
[2017-12-30 05:44] LABS: ADD MAN DIFF? NO
[2017-12-30 05:51] LABS: BASOPHILS % 0.3 % (0.0-2.0); EOSINOPHILS # 0.1 10^3/ul (0.0-0.5); EOSINOPHILS % 0.5 % (0.0-7.0); HEMATOCRIT 34.2 % (42.0-52.0); HEMOGLOBIN 11.8 g/dl (14.0-18.0); LYMPHOCYTES # 1.3 10^3/ul (0.8-2.9); LYMPHOCYTES % 11.5 % (15.0-51.0); MEAN CORPUSCULAR HGB CONC 34.5 g/dl (32.0-37.0); MEAN CORPUSCULAR VOLUME 92.7 fl (82.0-101.0); MEAN PLATELET VOLUME 9.4 fl (7.4-10.4); MONOCYTE # 0.6 10^3/ul (0.3-0.9); MONOCYTES % 5.4 % (0.0-11.0); NEUTROPHIL # 9.4 10^3/ul (1.6-7.5); PLATELET COUNT 321 10^3/UL (140-415); RED BLOOD COUNT 3.69 10^6/ul (4.70-6.10); RED CELL DISTRIBUTION WIDTH 13.2 % (11.5-14.5)
[2017-12-30 05:51] LABS: WHITE BLOOD COUNT 11.5 10^3/ul (4.8-10.8)
[2017-12-30 06:12] LABS: ANION GAP 13 (8-16); BLOOD UREA NITROGEN 28 mg/dl (7-20); CALCIUM 9.7 mg/dl (8.4-10.2); CARBON DIOXIDE 27 mmol/L (21-31); CHLORIDE 102 mmol/L (97-110); CREATININE 0.96 mg/dl (0.61-1.24); GLUCOSE 153 mg/dl (70-220); POTASSIUM 4.3 mmol/L (3.5-5.1); SODIUM 138 mmol/L (135-144)
[2017-12-30] MEDS: Insulin NOVOLOG SS MILD Algorithm (SS with meals and bedtime) SC ×4 (07:00→20:47)
[2017-12-30] MEDS: ASPIRIN (EC) 81 MG TAB PO (08:07)
[2017-12-30] MEDS: CLOPIDOGREL 75 MG TAB PO (08:08)
[2017-12-30] MEDS: BACLOFEN 10 MG TAB PO ×2 (08:08→20:34)
[2017-12-30] MEDS: DOCUSATE SODIUM 100 MG CAP PO ×2 (08:08→20:34)
[2017-12-30] MEDS: METOPROLOL (XL) 25 MG TAB PO (08:08)
[2017-12-30] MEDS: HYDROCHLOROTHIAZIDE 25 MG TAB PO (08:08)
[2017-12-30] MEDS: AMLODIPINE 10 MG TAB PO (08:09)
[2017-12-30] MEDS: ENOXAPARIN 40 MG/0.4 ML SYG SC (08:10)
[2017-12-30] MEDS: ATORVASTATIN 80 MG TAB PO (20:34)
[2017-12-30] MEDS: SENNA TAB PO (20:34)
[2017-12-31] MEDS: ACCUCHECK AT 2AM (Patients on SS coverage) XX (02:09)
[2017-12-31] MEDS: ACETAMINOPHEN 325 MG TAB PO ×2 (02:26→20:15)
[2017-12-31 05:59] LABS: ADD MAN DIFF? NO
[2017-12-31 06:12] LABS: WHITE BLOOD COUNT 8.4 10^3/ul (4.8-10.8)
[2017-12-31 06:12] LABS: BASOPHILS % 0.4 % (0.0-2.0); EOSINOPHILS # 0.2 10^3/ul (0.0-0.5); EOSINOPHILS % 1.8 % (0.0-7.0); HEMATOCRIT 30.5 % (42.0-52.0); HEMOGLOBIN 10.5 g/dl (14.0-18.0); LYMPHOCYTES # 1.9 10^3/ul (0.8-2.9); LYMPHOCYTES % 22.3 % (15.0-51.0); MEAN CORPUSCULAR HEMOGLOBIN 32.4 pg (29.0-33.0); MEAN CORPUSCULAR HGB CONC 34.4 g/dl (32.0-37.0); MEAN CORPUSCULAR VOLUME 94.1 fl (82.0-101.0); MEAN PLATELET VOLUME 9.7 fl (7.4-10.4); MONOCYTE # 0.6 10^3/ul (0.3-0.9); MONOCYTES % 6.8 % (0.0-11.0); NEUTROPHIL # 5.7 10^3/ul (1.6-7.5); NEUTROPHILS % 68.3 % (39.0-77.0); PLATELET COUNT 275 10^3/UL (140-415); RED BLOOD COUNT 3.24 10^6/ul (4.70-6.10); RED CELL DISTRIBUTION WIDTH 13.3 % (11.5-14.5)
[2017-12-31] MEDS: Insulin NOVOLOG SS MILD Algorithm (SS with meals and bedtime) SC ×4 (07:00→20:20)
[2017-12-31 07:45] LABS: ANION GAP 9 (8-16); BLOOD UREA NITROGEN 25 mg/dl (7-20); CALCIUM 9.1 mg/dl (8.4-10.2); CARBON DIOXIDE 28 mmol/L (21-31); CHLORIDE 102 mmol/L (97-110); CREATININE 0.76 mg/dl (0.61-1.24); GLUCOSE 144 mg/dl (70-220); POTASSIUM 3.3 mmol/L (3.5-5.1); SODIUM 136 mmol/L (135-144)
[2017-12-31] MEDS: DOCUSATE SODIUM 100 MG CAP PO ×2 (08:41→20:14)
[2017-12-31] MEDS: ASPIRIN (EC) 81 MG TAB PO (08:41)
[2017-12-31] MEDS: HYDROCHLOROTHIAZIDE 25 MG TAB PO (08:41)
[2017-12-31] MEDS: CLOPIDOGREL 75 MG TAB PO (08:41)
[2017-12-31] MEDS: METOPROLOL (XL) 25 MG TAB PO (08:42)
[2017-12-31] MEDS: BACLOFEN 10 MG TAB PO ×2 (08:42→20:14)
[2017-12-31] MEDS: AMLODIPINE 10 MG TAB PO (08:42)
[2017-12-31] MEDS: ENOXAPARIN 40 MG/0.4 ML SYG SC (08:43)
[2017-12-31] MEDS: SENNA TAB PO (20:14)
[2017-12-31] MEDS: ATORVASTATIN 80 MG TAB PO (20:14)
[2017-12-31] MEDS: HALOPERIDOL 5 MG INJ IM (22:48)
[2018-01-01] MEDS: ACCUCHECK AT 2AM (Patients on SS coverage) XX (01:36)
[2018-01-01] MEDS: HALOPERIDOL 5 MG INJ IM (03:17)
[2018-01-01 05:56] LABS: ADD MAN DIFF? NO
[2018-01-01 06:03] LABS: WHITE BLOOD COUNT 7.6 10^3/ul (4.8-10.8)
[2018-01-01 06:03] LABS: BASOPHILS % 0.3 % (0.0-2.0); EOSINOPHILS # 0.2 10^3/ul (0.0-0.5); EOSINOPHILS % 2.6 % (0.0-7.0); HEMATOCRIT 30.9 % (42.0-52.0); HEMOGLOBIN 10.7 g/dl (14.0-18.0); LYMPHOCYTES # 1.7 10^3/ul (0.8-2.9); LYMPHOCYTES % 22.6 % (15.0-51.0); MEAN CORPUSCULAR HEMOGLOBIN 32.5 pg (29.0-33.0); MEAN CORPUSCULAR HGB CONC 34.6 g/dl (32.0-37.0); MEAN CORPUSCULAR VOLUME 93.9 fl (82.0-101.0); MEAN PLATELET VOLUME 9.2 fl (7.4-10.4); MONOCYTE # 0.5 10^3/ul (0.3-0.9); MONOCYTES % 6.2 % (0.0-11.0); NEUTROPHIL # 5.2 10^3/ul (1.6-7.5); NEUTROPHILS % 67.9 % (39.0-77.0); PLATELET COUNT 256 10^3/UL (140-415); RED BLOOD COUNT 3.29 10^6/ul (4.70-6.10); RED CELL DISTRIBUTION WIDTH 13.3 % (11.5-14.5)
[2018-01-01 06:53] LABS: ANION GAP 8 (8-16); BLOOD UREA NITROGEN 18 mg/dl (7-20); CALCIUM 9.4 mg/dl (8.4-10.2); CARBON DIOXIDE 30 mmol/L (21-31); CHLORIDE 102 mmol/L (97-110); CREATININE 0.75 mg/dl (0.61-1.24); GLUCOSE 159 mg/dl (70-220); POTASSIUM 3.1 mmol/L (3.5-5.1); SODIUM 137 mmol/L (135-144)
[2018-01-01] MEDS: Insulin NOVOLOG SS MILD Algorithm (SS with meals and bedtime) SC ×4 (07:57→20:20)
[2018-01-01] MEDS: HYDROCHLOROTHIAZIDE 25 MG TAB PO (08:46)
[2018-01-01] MEDS: BACLOFEN 10 MG TAB PO ×2 (08:46→20:20)
[2018-01-01] MEDS: METOPROLOL (XL) 25 MG TAB PO (08:46)
[2018-01-01] MEDS: DOCUSATE SODIUM 100 MG CAP PO ×2 (08:47→20:20)
[2018-01-01] MEDS: AMLODIPINE 10 MG TAB PO (08:47)
[2018-01-01] MEDS: CLOPIDOGREL 75 MG TAB PO (08:47)
[2018-01-01] MEDS: ASPIRIN (EC) 81 MG TAB PO (08:49)
[2018-01-01] MEDS: ENOXAPARIN 40 MG/0.4 ML SYG SC (09:11)
[2018-01-01] MEDS: POTASSIUM CHLORIDE (SR) 20 MEQ TAB PO (11:18)
[2018-01-01 11:44] LABS: MAGNESIUM 1.8 mg/dl (1.7-2.5)
[2018-01-01] MEDS: MAGNESIUM SULFATE 1 GM/D5W 100 ML IVPB (17:55)
[2018-01-01] MEDS: ATORVASTATIN 80 MG TAB PO (20:20)
[2018-01-01] MEDS: SENNA TAB PO (20:20)
[2018-01-01] MEDS: ZOLPIDEM 5 MG TAB PO (21:37)
[2018-01-02] MEDS: ACCUCHECK AT 2AM (Patients on SS coverage) XX (02:00)
[2018-01-02] MEDS: ACETAMINOPHEN 325 MG TAB PO (03:08)
[2018-01-02] MEDS: ASPIRIN (EC) 81 MG TAB PO (08:54)
[2018-01-02] MEDS: DOCUSATE SODIUM 100 MG CAP PO ×2 (08:54→20:44)
[2018-01-02] MEDS: METOPROLOL (XL) 25 MG TAB PO (08:54)
[2018-01-02] MEDS: BACLOFEN 10 MG TAB PO ×2 (08:54→20:44)
[2018-01-02] MEDS: CLOPIDOGREL 75 MG TAB PO (08:55)
[2018-01-02] MEDS: AMLODIPINE 10 MG TAB PO (08:55)
[2018-01-02] MEDS: ENOXAPARIN 40 MG/0.4 ML SYG SC (08:56)
[2018-01-02] MEDS: Insulin NOVOLOG SS MILD Algorithm (SS with meals and bedtime) SC ×4 (08:57→20:44)
[2018-01-02] MEDS: HYDROCHLOROTHIAZIDE 25 MG TAB PO (08:59)
[2018-01-02 10:35] LABS: ADD MAN DIFF? NO
[2018-01-02 10:41] LABS: BASOPHILS % 0.3 % (0.0-2.0); EOSINOPHILS # 0.1 10^3/ul (0.0-0.5); EOSINOPHILS % 0.9 % (0.0-7.0); HEMATOCRIT 32.1 % (42.0-52.0); HEMOGLOBIN 10.9 g/dl (14.0-18.0); LYMPHOCYTES # 1.5 10^3/ul (0.8-2.9); LYMPHOCYTES % 16.4 % (15.0-51.0); MEAN CORPUSCULAR HEMOGLOBIN 32.1 pg (29.0-33.0); MEAN CORPUSCULAR VOLUME 94.4 fl (82.0-101.0); MEAN PLATELET VOLUME 9.5 fl (7.4-10.4); MONOCYTE # 0.5 10^3/ul (0.3-0.9); MONOCYTES % 5.6 % (0.0-11.0); NEUTROPHILS % 76.3 % (39.0-77.0); PLATELET COUNT 303 10^3/UL (140-415); RED CELL DISTRIBUTION WIDTH 13.7 % (11.5-14.5)
[2018-01-02 10:41] LABS: WHITE BLOOD COUNT 9.2 10^3/ul (4.8-10.8)
[2018-01-02 11:15] LABS: ANION GAP 12 (8-16); BLOOD UREA NITROGEN 25 mg/dl (7-20); CALCIUM 9.9 mg/dl (8.4-10.2); CARBON DIOXIDE 29 mmol/L (21-31); CHLORIDE 101 mmol/L (97-110); CREATININE 0.93 mg/dl (0.61-1.24); GLUCOSE 156 mg/dl (70-220); MAGNESIUM 1.9 mg/dl (1.7-2.5); POTASSIUM 3.7 mmol/L (3.5-5.1); SODIUM 138 mmol/L (135-144)
[2018-01-02] MEDS: SENNA TAB PO (20:44)
[2018-01-02] MEDS: ATORVASTATIN 80 MG TAB PO (20:44)
[2018-01-02] MEDS: LORAZEPAM 2 MG INJ IV (21:59)
[2018-01-02] MEDS: HALOPERIDOL 5 MG INJ IM (22:58)
[2018-01-03] MEDS: ACCUCHECK AT 2AM (Patients on SS coverage) XX (02:00)
[2018-01-03] MEDS: ASPIRIN (EC) 81 MG TAB PO (09:11)
[2018-01-03] MEDS: DOCUSATE SODIUM 100 MG CAP PO ×2 (09:13→20:18)
[2018-01-03] MEDS: CLOPIDOGREL 75 MG TAB PO (09:13)
[2018-01-03] MEDS: BACLOFEN 10 MG TAB PO ×2 (09:14→20:18)
[2018-01-03] MEDS: HYDROCHLOROTHIAZIDE 25 MG TAB PO (09:15)
[2018-01-03] MEDS: METOPROLOL (XL) 25 MG TAB PO (09:15)
[2018-01-03] MEDS: AMLODIPINE 10 MG TAB PO (09:15)
[2018-01-03] MEDS: Insulin NOVOLOG SS MILD Algorithm (SS with meals and bedtime) SC ×4 (09:18→20:18)
[2018-01-03] MEDS: ENOXAPARIN 40 MG/0.4 ML SYG SC (09:20)
[2018-01-03] MEDS: ACETAMINOPHEN 325 MG TAB PO (13:46)
[2018-01-03] MEDS ORDERED: HALOPERIDOL 5 MG INJ IM (15:30)
[2018-01-03] MEDS: HYDROCODONE/APAP (5/325) TAB PO (16:15)
[2018-01-03] MEDS: SENNA TAB PO (20:18)
[2018-01-03] MEDS: ATORVASTATIN 80 MG TAB PO (20:18)
[2018-01-04] MEDS: HYDROCODONE/APAP (5/325) TAB PO ×4 (00:20→22:37)
[2018-01-04] MEDS: ACCUCHECK AT 2AM (Patients on SS coverage) XX (01:33)
[2018-01-04] MEDS: LORAZEPAM 2 MG INJ IV (02:03)
[2018-01-04] MEDS: morphine 2 MG INJ IV (07:09)
[2018-01-04] MEDS: ASPIRIN (EC) 81 MG TAB PO (08:53)
[2018-01-04] MEDS: CLOPIDOGREL 75 MG TAB PO (08:53)
[2018-01-04] MEDS: BACLOFEN 10 MG TAB PO ×2 (08:53→20:29)
[2018-01-04] MEDS: DOCUSATE SODIUM 100 MG CAP PO ×2 (08:54→20:29)
[2018-01-04] MEDS: Insulin NOVOLOG SS MILD Algorithm (SS with meals and bedtime) SC ×4 (09:05→20:35)
[2018-01-04] MEDS: ENOXAPARIN 40 MG/0.4 ML SYG SC (09:06)
[2018-01-04] MEDS: HYDROCHLOROTHIAZIDE 25 MG TAB PO (09:28)
[2018-01-04] MEDS: METOPROLOL (XL) 25 MG TAB PO (09:28)
[2018-01-04] MEDS: AMLODIPINE 10 MG TAB PO (11:09)
[2018-01-04] MEDS: SENNA TAB PO (20:28)
[2018-01-04] MEDS: ATORVASTATIN 80 MG TAB PO (20:29)
[2018-01-05] MEDS: ACCUCHECK AT 2AM (Patients on SS coverage) XX (02:00)
[2018-01-05] MEDS: HYDROCODONE/APAP (5/325) TAB PO ×3 (05:40→19:09)
[2018-01-05] MEDS: Insulin NOVOLOG SS MILD Algorithm (SS with meals and bedtime) SC ×4 (08:42→20:52)
[2018-01-05] MEDS: BACLOFEN 10 MG TAB PO ×3 (09:00→20:52)
[2018-01-05] MEDS: CLOPIDOGREL 75 MG TAB PO ×2 (09:00→12:45)
[2018-01-05] MEDS: METOPROLOL (XL) 25 MG TAB PO ×2 (09:00→12:45)
[2018-01-05] MEDS: ASPIRIN (EC) 81 MG TAB PO ×2 (09:00→12:35)
[2018-01-05] MEDS: HYDROCHLOROTHIAZIDE 25 MG TAB PO ×2 (09:00→12:43)
[2018-01-05] MEDS: AMLODIPINE 10 MG TAB PO ×2 (09:00→12:46)
[2018-01-05] MEDS: ENOXAPARIN 40 MG/0.4 ML SYG SC ×2 (09:00→12:46)
[2018-01-05] MEDS: DOCUSATE SODIUM 100 MG CAP PO ×2 (09:00→20:12)
[2018-01-05] MEDS: SENNA TAB PO (20:52)
[2018-01-05] MEDS: ATORVASTATIN 80 MG TAB PO (20:52)
[2018-01-05] MEDS: ACETAMINOPHEN 325 MG TAB PO (23:23)
[2018-01-06] MEDS: ACCUCHECK AT 2AM (Patients on SS coverage) XX (02:00)
[2018-01-06] MEDS: HYDROCODONE/APAP (5/325) TAB PO ×3 (02:34→23:40)
[2018-01-06] MEDS: HALOPERIDOL 5 MG INJ IM (03:00)
[2018-01-06] MEDS: LORAZEPAM 2 MG INJ IV (03:08)
[2018-01-06] MEDS: AMLODIPINE 10 MG TAB PO (08:59)
[2018-01-06] MEDS: ASPIRIN (EC) 81 MG TAB PO (08:59)
[2018-01-06] MEDS: HYDROCHLOROTHIAZIDE 25 MG TAB PO (08:59)
[2018-01-06] MEDS: BACLOFEN 10 MG TAB PO ×2 (08:59→20:14)
[2018-01-06] MEDS: METOPROLOL (XL) 25 MG TAB PO (09:00)
[2018-01-06] MEDS: CLOPIDOGREL 75 MG TAB PO (09:00)
[2018-01-06] MEDS: DOCUSATE SODIUM 100 MG CAP PO ×2 (09:00→21:00)
[2018-01-06] MEDS: ENOXAPARIN 40 MG/0.4 ML SYG SC (09:03)
[2018-01-06] MEDS: Insulin NOVOLOG SS MILD Algorithm (SS with meals and bedtime) SC ×4 (09:06→20:14)
[2018-01-06] MEDS: QUETIAPINE 25 MG TAB PO ×2 (10:55→20:14)
[2018-01-06] MEDS: ATORVASTATIN 80 MG TAB PO (20:14)
[2018-01-06] MEDS: SENNA TAB PO (21:00)
[2018-01-07] MEDS: ACCUCHECK AT 2AM (Patients on SS coverage) XX (02:00)
[2018-01-07] MEDS: HYDROCODONE/APAP (5/325) TAB PO ×2 (07:26→14:41)
[2018-01-07] MEDS: ENOXAPARIN 40 MG/0.4 ML SYG SC (08:45)
[2018-01-07] MEDS: Insulin NOVOLOG SS MILD Algorithm (SS with meals and bedtime) SC ×4 (08:46→20:33)
[2018-01-07] MEDS: DOCUSATE SODIUM 100 MG CAP PO ×2 (08:46→20:28)
[2018-01-07] MEDS: ASPIRIN (EC) 81 MG TAB PO (08:46)
[2018-01-07] MEDS: CLOPIDOGREL 75 MG TAB PO (08:47)
[2018-01-07] MEDS: BACLOFEN 10 MG TAB PO ×2 (08:47→20:28)
[2018-01-07] MEDS: QUETIAPINE 25 MG TAB PO ×2 (08:47→20:28)
[2018-01-07] MEDS: AMLODIPINE 10 MG TAB PO (08:47)
[2018-01-07] MEDS: HYDROCHLOROTHIAZIDE 25 MG TAB PO (08:47)
[2018-01-07] MEDS: METOPROLOL (XL) 25 MG TAB PO (08:47)
[2018-01-07] MEDS: ATORVASTATIN 80 MG TAB PO (20:28)
[2018-01-07] MEDS: SENNA TAB PO (20:28)
[2018-01-07] MEDS: ACETAMINOPHEN 325 MG TAB PO (20:35)
[2018-01-08] MEDS: ACCUCHECK AT 2AM (Patients on SS coverage) XX (02:16)
[2018-01-08] MEDS: ACETAMINOPHEN 325 MG TAB PO (03:59)
[2018-01-08] MEDS: QUETIAPINE 25 MG TAB PO ×2 (08:44→21:32)
[2018-01-08] MEDS: HYDROCHLOROTHIAZIDE 25 MG TAB PO (08:44)
[2018-01-08] MEDS: DOCUSATE SODIUM 100 MG CAP PO ×2 (08:44→21:32)
[2018-01-08] MEDS: CLOPIDOGREL 75 MG TAB PO (08:45)
[2018-01-08] MEDS: METOPROLOL (XL) 25 MG TAB PO (08:45)
[2018-01-08] MEDS: BACLOFEN 10 MG TAB PO ×2 (08:45→21:31)
[2018-01-08] MEDS: ASPIRIN (EC) 81 MG TAB PO (08:45)
[2018-01-08] MEDS: AMLODIPINE 10 MG TAB PO (08:45)
[2018-01-08] MEDS: ENOXAPARIN 40 MG/0.4 ML SYG SC (08:47)
[2018-01-08] MEDS: Insulin NOVOLOG SS MILD Algorithm (SS with meals and bedtime) SC ×4 (08:48→21:31)
[2018-01-08] MEDS: HYDROCODONE/APAP (5/325) TAB PO (18:37)
[2018-01-08] MEDS: SENNA TAB PO (21:31)
[2018-01-08] MEDS: ATORVASTATIN 80 MG TAB PO (21:31)
[2018-01-09] MEDS: ACCUCHECK AT 2AM (Patients on SS coverage) XX (02:08)
[2018-01-09 05:00] LABS: ADD MAN DIFF? NO
[2018-01-09 05:15] LABS: WHITE BLOOD COUNT 6.8 10^3/ul (4.8-10.8)
[2018-01-09 05:15] LABS: BASOPHILS % 0.4 % (0.0-2.0); EOSINOPHILS # 0.2 10^3/ul (0.0-0.5); EOSINOPHILS % 2.7 % (0.0-7.0); HEMATOCRIT 35.3 % (42.0-52.0); HEMOGLOBIN 11.7 g/dl (14.0-18.0); LYMPHOCYTES % 28.8 % (15.0-51.0); MEAN CORPUSCULAR HGB CONC 33.1 g/dl (32.0-37.0); MEAN CORPUSCULAR VOLUME 96.4 fl (82.0-101.0); MONOCYTE # 0.6 10^3/ul (0.3-0.9); MONOCYTES % 8.1 % (0.0-11.0); NEUTROPHILS % 59.7 % (39.0-77.0); PLATELET COUNT 293 10^3/UL (140-415); RED BLOOD COUNT 3.66 10^6/ul (4.70-6.10); RED CELL DISTRIBUTION WIDTH 13.3 % (11.5-14.5)
[2018-01-09 05:22] LABS: ALANINE AMINOTRANSFERASE 57 IU/L (13-69); ALKALINE PHOSPHATASE 77 IU/L (42-121); ANION GAP 9 (5-13); ASPARTATE AMINO TRANSFERASE 33 IU/L (15-46); BILIRUBIN,INDIRECT 0.3 mg/dl (0-1.1); BILIRUBIN,TOTAL 0.3 mg/dl (0.2-1.3); BLOOD UREA NITROGEN 23 mg/dl (7-20); CALCIUM 9.4 mg/dl (8.4-10.2); CARBON DIOXIDE 27 mmol/L (21-31); CHLORIDE 100 mmol/L (97-110); CREATININE 0.68 mg/dl (0.61-1.24); GLUCOSE 243 mg/dl (70-220); MAGNESIUM 1.8 mg/dl (1.7-2.5); PHOSPHORUS 3.8 mg/dl (2.5-4.9); POTASSIUM 4.1 mmol/L (3.5-5.1); SODIUM 136 mmol/L (135-144); TOTAL PROTEIN 5.5 g/dl (6.1-8.1)
[2018-01-09] MEDS: Insulin NOVOLOG SS MILD Algorithm (SS with meals and bedtime) SC ×4 (08:17→21:00)
[2018-01-09] MEDS: CLOPIDOGREL 75 MG TAB PO (08:18)
[2018-01-09] MEDS: ASPIRIN (EC) 81 MG TAB PO (08:18)
[2018-01-09] MEDS: AMLODIPINE 10 MG TAB PO (08:18)
[2018-01-09] MEDS: ENOXAPARIN 40 MG/0.4 ML SYG SC (08:18)
[2018-01-09] MEDS: QUETIAPINE 25 MG TAB PO ×2 (08:19→20:57)
[2018-01-09] MEDS: DOCUSATE SODIUM 100 MG CAP PO (08:19)
[2018-01-09] MEDS: HYDROCHLOROTHIAZIDE 25 MG TAB PO (08:19)
[2018-01-09] MEDS: METOPROLOL (XL) 25 MG TAB PO (08:19)
[2018-01-09] MEDS: BACLOFEN 10 MG TAB PO ×2 (09:10→20:57)
[2018-01-09] MEDS: INSULIN ASPART [NOVOLOG] 3 ML PEN SC (17:52)
[2018-01-09] MEDS: HYDROCODONE/APAP (5/325) TAB PO (20:10)
[2018-01-09] MEDS: ATORVASTATIN 80 MG TAB PO (20:57)
[2018-01-09] MEDS: INSULIN GLARGINE [LANTus] (100 UNITS/ML) SYG SC (20:59)
[2018-01-09] MEDS: SENNA TAB PO (21:00)
[2018-01-10] MEDS: ACCUCHECK AT 2AM (Patients on SS coverage) XX (02:00)
[2018-01-10] MEDS: DOCUSATE SODIUM 100 MG CAP PO (07:51)
[2018-01-10] MEDS: ESCITALOPRAM 10 MG TAB PO (08:07)
[2018-01-10] MEDS: QUETIAPINE 25 MG TAB PO ×2 (08:07→20:38)
[2018-01-10] MEDS: BACLOFEN 10 MG TAB PO ×2 (08:07→20:38)
[2018-01-10] MEDS: CLOPIDOGREL 75 MG TAB PO (08:07)
[2018-01-10] MEDS: ASPIRIN (EC) 81 MG TAB PO (08:07)
[2018-01-10] MEDS: AMLODIPINE 2.5 MG TAB PO (08:08)
[2018-01-10] MEDS: METOPROLOL (XL) 25 MG TAB PO (08:08)
[2018-01-10] MEDS: ENOXAPARIN 40 MG/0.4 ML SYG SC (08:10)
[2018-01-10] MEDS: INSULIN ASPART [NOVOLOG] 3 ML PEN SC ×3 (08:11→17:30)
[2018-01-10] MEDS: Insulin NOVOLOG SS MILD Algorithm (SS with meals and bedtime) SC ×4 (08:12→20:39)
[2018-01-10] MEDS: HYDROCODONE/APAP (5/325) TAB PO (09:12)
[2018-01-10] MEDS: ATORVASTATIN 80 MG TAB PO (20:38)
[2018-01-10] MEDS: SENNA TAB PO (20:38)
[2018-01-10] MEDS: INSULIN GLARGINE [LANTus] (100 UNITS/ML) SYG SC (20:40)
[2018-01-11] MEDS: HYDROCODONE/APAP (5/325) TAB PO ×3 (00:09→21:03)
[2018-01-11] MEDS: ACCUCHECK AT 2AM (Patients on SS coverage) XX ×2 (01:15→20:30)
[2018-01-11] MEDS: HALOPERIDOL 5 MG INJ IM (01:15)
[2018-01-11] MEDS: ZOLPIDEM 5 MG TAB PO (01:54)
[2018-01-11] MEDS: ASPIRIN (EC) 81 MG TAB PO (09:16)
[2018-01-11] MEDS: ESCITALOPRAM 10 MG TAB PO (09:16)
[2018-01-11] MEDS: DOCUSATE SODIUM 100 MG CAP PO (09:16)
[2018-01-11] MEDS: BACLOFEN 10 MG TAB PO ×2 (09:16→20:26)
[2018-01-11] MEDS: CLOPIDOGREL 75 MG TAB PO (09:16)
[2018-01-11] MEDS: AMLODIPINE 2.5 MG TAB PO (09:17)
[2018-01-11] MEDS: METOPROLOL (XL) 25 MG TAB PO (09:18)
[2018-01-11] MEDS: INSULIN ASPART [NOVOLOG] 3 ML PEN SC ×3 (09:20→18:00)
[2018-01-11] MEDS: ENOXAPARIN 60 MG/0.6 ML SYG SC (09:21)
[2018-01-11] MEDS: Insulin NOVOLOG SS MILD Algorithm (SS with meals and bedtime) SC ×4 (09:21→20:29)
[2018-01-11] MEDS: QUETIAPINE 25 MG TAB PO ×2 (11:49→20:26)
[2018-01-11] MEDS: SENNA TAB PO (20:26)
[2018-01-11] MEDS: ATORVASTATIN 80 MG TAB PO (20:26)
[2018-01-11] MEDS: INSULIN GLARGINE [LANTus] (100 UNITS/ML) SYG SC (20:27)
[2018-01-12] MEDS: HYDROCODONE/APAP (5/325) TAB PO ×3 (02:18→21:31)
[2018-01-12] MEDS: METOPROLOL (XL) 25 MG TAB PO (09:13)
[2018-01-12] MEDS: DOCUSATE SODIUM 100 MG CAP PO (09:13)
[2018-01-12] MEDS: CLOPIDOGREL 75 MG TAB PO (09:14)
[2018-01-12] MEDS: ESCITALOPRAM 10 MG TAB PO (09:14)
[2018-01-12] MEDS: BACLOFEN 10 MG TAB PO ×2 (09:14→20:16)
[2018-01-12] MEDS: ASPIRIN (EC) 81 MG TAB PO (09:14)
[2018-01-12] MEDS: QUETIAPINE 25 MG TAB PO ×2 (09:14→20:16)
[2018-01-12] MEDS: AMLODIPINE 2.5 MG TAB PO (09:18)
[2018-01-12] MEDS: INSULIN ASPART [NOVOLOG] 3 ML PEN SC ×3 (09:25→18:09)
[2018-01-12] MEDS: Insulin NOVOLOG SS MILD Algorithm (SS with meals and bedtime) SC ×4 (09:26→20:16)
[2018-01-12] MEDS: ENOXAPARIN 60 MG/0.6 ML SYG SC ×2 (09:27→20:24)
[2018-01-12] MEDS: INSULIN GLARGINE [LANTus] (100 UNITS/ML) SYG SC (20:00)
[2018-01-12] MEDS: ATORVASTATIN 80 MG TAB PO (20:16)
[2018-01-12] MEDS: SENNA TAB PO (20:16)
[2018-01-13] MEDS: ACCUCHECK AT 2AM (Patients on SS coverage) XX (01:27)
[2018-01-13] MEDS: HYDROCODONE/APAP (5/325) TAB PO ×2 (06:18→13:58)
[2018-01-13] MEDS: BACLOFEN 10 MG TAB PO ×2 (07:42→20:31)
[2018-01-13] MEDS: ESCITALOPRAM 10 MG TAB PO (08:27)
[2018-01-13] MEDS: ASPIRIN (EC) 81 MG TAB PO (08:27)
[2018-01-13] MEDS: QUETIAPINE 25 MG TAB PO ×2 (08:27→20:31)
[2018-01-13] MEDS: CLOPIDOGREL 75 MG TAB PO (08:27)
[2018-01-13] MEDS: DOCUSATE SODIUM 100 MG CAP PO (08:27)
[2018-01-13] MEDS: AMLODIPINE 5 MG TAB PO (08:28)
[2018-01-13] MEDS: INSULIN ASPART [NOVOLOG] 3 ML PEN SC ×3 (08:31→18:20)
[2018-01-13] MEDS: Insulin NOVOLOG SS MILD Algorithm (SS with meals and bedtime) SC ×4 (08:32→20:33)
[2018-01-13] MEDS: ENOXAPARIN 60 MG/0.6 ML SYG SC ×2 (08:33→20:33)
[2018-01-13] MEDS: METOPROLOL (XL) 25 MG TAB PO (09:00)
[2018-01-13] MEDS: ACETAMINOPHEN 325 MG TAB PO (17:21)
[2018-01-13] MEDS: ATORVASTATIN 80 MG TAB PO (20:31)
[2018-01-13] MEDS: SENNA TAB PO (20:31)
[2018-01-13] MEDS: INSULIN GLARGINE [LANTus] (100 UNITS/ML) SYG SC (20:32)
[2018-01-14] MEDS: HYDROCODONE/APAP (5/325) TAB PO ×2 (00:46→21:32)
[2018-01-14] MEDS: ACCUCHECK AT 2AM (Patients on SS coverage) XX (01:45)
[2018-01-14] MEDS: morphine LIQ (10 MG/5 ML) CUP PO (03:33)
[2018-01-14] MEDS: AMLODIPINE 5 MG TAB PO (08:59)
[2018-01-14] MEDS: QUETIAPINE 25 MG TAB PO ×3 (08:59→21:07)
[2018-01-14] MEDS: DOCUSATE SODIUM 100 MG CAP PO (08:59)
[2018-01-14] MEDS: ESCITALOPRAM 10 MG TAB PO (08:59)
[2018-01-14] MEDS: BACLOFEN 10 MG TAB PO ×2 (08:59→21:07)
[2018-01-14] MEDS: ASPIRIN (EC) 81 MG TAB PO (09:00)
[2018-01-14] MEDS: METOPROLOL (XL) 25 MG TAB PO (09:00)
[2018-01-14] MEDS: CLOPIDOGREL 75 MG TAB PO (09:00)
[2018-01-14] MEDS: ENOXAPARIN 60 MG/0.6 ML SYG SC ×2 (09:02→21:16)
[2018-01-14] MEDS: Insulin NOVOLOG SS MILD Algorithm (SS with meals and bedtime) SC ×4 (09:07→21:00)
[2018-01-14] MEDS: INSULIN ASPART [NOVOLOG] 3 ML PEN SC ×3 (09:08→18:04)
[2018-01-14] MEDS: ATORVASTATIN 80 MG TAB PO (21:07)
[2018-01-14] MEDS: SENNA TAB PO (21:07)
[2018-01-14] MEDS: INSULIN GLARGINE [LANTus] (100 UNITS/ML) SYG SC (21:17)
[2018-01-14] MEDS: LORAZEPAM 2 MG INJ IV (23:08)
[2018-01-15] MEDS: ACCUCHECK AT 2AM (Patients on SS coverage) XX (02:00)
[2018-01-15] MEDS: Insulin NOVOLOG SS MILD Algorithm (SS with meals and bedtime) SC ×4 (08:57→20:31)
[2018-01-15] MEDS: ENOXAPARIN 60 MG/0.6 ML SYG SC (09:02)
[2018-01-15] MEDS: QUETIAPINE 25 MG TAB PO ×2 (09:03→20:31)
[2018-01-15] MEDS: INSULIN ASPART [NOVOLOG] 3 ML PEN SC ×3 (09:03→18:38)
[2018-01-15] MEDS: DOCUSATE SODIUM 100 MG CAP PO (09:03)
[2018-01-15] MEDS: CLOPIDOGREL 75 MG TAB PO (09:03)
[2018-01-15] MEDS: ASPIRIN (EC) 81 MG TAB PO (09:04)
[2018-01-15] MEDS: BACLOFEN 10 MG TAB PO ×2 (09:04→20:31)
[2018-01-15] MEDS: ESCITALOPRAM 10 MG TAB PO (09:04)
[2018-01-15] MEDS: AMLODIPINE 5 MG TAB PO (09:05)
[2018-01-15] MEDS: METOPROLOL (XL) 25 MG TAB PO (09:05)
[2018-01-15] MEDS: HYDROCODONE/APAP (5/325) TAB PO (15:33)
[2018-01-15] MEDS: INSULIN GLARGINE [LANTus] (100 UNITS/ML) SYG SC ×2 (20:00→20:30)
[2018-01-15] MEDS: SENNA TAB PO (20:31)
[2018-01-15] MEDS: ATORVASTATIN 80 MG TAB PO (20:31)
[2018-01-16] MEDS: ACCUCHECK AT 2AM (Patients on SS coverage) XX (02:00)
[2018-01-16] MEDS: HYDROCODONE/APAP (5/325) TAB PO (02:38)
[2018-01-16] MEDS: Insulin NOVOLOG SS MILD Algorithm (SS with meals and bedtime) SC ×4 (07:20→21:00)
[2018-01-16] MEDS: INSULIN ASPART [NOVOLOG] 3 ML PEN SC ×3 (09:02→18:00)
[2018-01-16] MEDS: ENOXAPARIN 30 MG/0.3 ML SYG SC (09:03)
[2018-01-16] MEDS: ASPIRIN (EC) 81 MG TAB PO (09:04)
[2018-01-16] MEDS: BACLOFEN 10 MG TAB PO ×2 (09:05→20:16)
[2018-01-16] MEDS: AMLODIPINE 5 MG TAB PO (09:05)
[2018-01-16] MEDS: ESCITALOPRAM 10 MG TAB PO (09:05)
[2018-01-16] MEDS: METOPROLOL (XL) 25 MG TAB PO (09:06)
[2018-01-16] MEDS: DOCUSATE SODIUM 100 MG CAP PO (09:06)
[2018-01-16] MEDS: CLOPIDOGREL 75 MG TAB PO (09:06)
[2018-01-16] MEDS: QUETIAPINE 25 MG TAB PO ×2 (11:13→20:16)
[2018-01-16] MEDS: ATORVASTATIN 80 MG TAB PO (20:16)
[2018-01-16] MEDS: SENNA TAB PO (20:16)
[2018-01-16] MEDS: INSULIN GLARGINE [LANTus] (100 UNITS/ML) SYG SC (20:17)
[2018-01-17] MEDS: ACCUCHECK AT 2AM (Patients on SS coverage) XX ×2 (02:00→20:20)
[2018-01-17] MEDS: CLOPIDOGREL 75 MG TAB PO (08:33)
[2018-01-17] MEDS: BACLOFEN 10 MG TAB PO ×2 (08:33→20:19)
[2018-01-17] MEDS: ESCITALOPRAM 10 MG TAB PO (08:33)
[2018-01-17] MEDS: QUETIAPINE 25 MG TAB PO ×2 (08:33→20:19)
[2018-01-17] MEDS: METOPROLOL (XL) 25 MG TAB PO (08:34)
[2018-01-17] MEDS: ASPIRIN (EC) 81 MG TAB PO (08:34)
[2018-01-17] MEDS: DOCUSATE SODIUM 100 MG CAP PO (08:34)
[2018-01-17] MEDS: AMLODIPINE 5 MG TAB PO ×2 (08:35→20:19)
[2018-01-17] MEDS: INSULIN ASPART [NOVOLOG] 3 ML PEN SC ×3 (08:38→17:48)
[2018-01-17] MEDS: Insulin NOVOLOG SS MILD Algorithm (SS with meals and bedtime) SC ×4 (08:40→20:20)
[2018-01-17] MEDS: ENOXAPARIN 30 MG/0.3 ML SYG SC (08:42)
[2018-01-17] MEDS: ATORVASTATIN 80 MG TAB PO (20:18)
[2018-01-17] MEDS: SENNA TAB PO (20:18)
[2018-01-17] MEDS: LORAZEPAM 2 MG INJ IV (20:21)
[2018-01-17] MEDS: INSULIN GLARGINE [LANTus] (100 UNITS/ML) SYG SC (20:23)
[2018-01-17] MEDS: HYDROCODONE/APAP (5/325) TAB PO (21:34)
[2018-01-18] MEDS: INSULIN ASPART [NOVOLOG] 3 ML PEN SC ×3 (08:30→17:42)
[2018-01-18] MEDS: Insulin NOVOLOG SS MILD Algorithm (SS with meals and bedtime) SC ×4 (08:30→20:51)
[2018-01-18] MEDS: ENOXAPARIN 30 MG/0.3 ML SYG SC (08:32)
[2018-01-18] MEDS: QUETIAPINE 25 MG TAB PO ×2 (08:32→20:40)
[2018-01-18] MEDS: ASPIRIN (EC) 81 MG TAB PO (08:32)
[2018-01-18] MEDS: BACLOFEN 10 MG TAB PO ×2 (08:32→20:40)
[2018-01-18] MEDS: CLOPIDOGREL 75 MG TAB PO (08:32)
[2018-01-18] MEDS: ESCITALOPRAM 10 MG TAB PO (08:33)
[2018-01-18] MEDS: AMLODIPINE 5 MG TAB PO ×2 (08:34→20:43)
[2018-01-18] MEDS: METOPROLOL (XL) 25 MG TAB PO (08:35)
[2018-01-18] MEDS: DOCUSATE SODIUM 100 MG CAP PO (08:35)
[2018-01-18] MEDS: HYDROCODONE/APAP (5/325) TAB PO ×2 (15:58→20:43)
[2018-01-18] MEDS: ATORVASTATIN 80 MG TAB PO (20:40)
[2018-01-18] MEDS: SENNA TAB PO (20:40)
[2018-01-18] MEDS: INSULIN GLARGINE [LANTus] (100 UNITS/ML) SYG SC (20:50)
[2018-01-18] MEDS: ACCUCHECK AT 2AM (Patients on SS coverage) XX (20:57)
[2018-01-19] MEDS: LORAZEPAM 2 MG INJ IV (01:20)
[2018-01-19] MEDS: ASPIRIN (EC) 81 MG TAB PO (08:56)
[2018-01-19] MEDS: CLOPIDOGREL 75 MG TAB PO (08:56)
[2018-01-19] MEDS: DOCUSATE SODIUM 100 MG CAP PO (08:57)
[2018-01-19] MEDS: QUETIAPINE 25 MG TAB PO (08:57)
[2018-01-19] MEDS: ESCITALOPRAM 10 MG TAB PO (08:57)
[2018-01-19] MEDS: BACLOFEN 10 MG TAB PO (08:57)
[2018-01-19] MEDS: METOPROLOL (XL) 25 MG TAB PO (08:58)
[2018-01-19] MEDS: AMLODIPINE 5 MG TAB PO (08:58)
[2018-01-19] MEDS: ENOXAPARIN 30 MG/0.3 ML SYG SC (09:06)
[2018-01-19] MEDS: INSULIN ASPART [NOVOLOG] 3 ML PEN SC ×3 (09:07→17:23)
[2018-01-19] MEDS: Insulin NOVOLOG SS MILD Algorithm (SS with meals and bedtime) SC ×3 (09:08→17:24)
[2018-01-19] MEDS: HYDROCODONE/APAP (5/325) TAB PO (17:28)
== END 2018-01-19 17:45 | DRG 309 ==
LOC: 6WM 20:23 → MS1 01-01 13:10
PROVIDERS: Hospitalist
DX: I49.5 Sick sinus syndrome (principal); G93.40 Encephalopathy, unspecified; I69.854 Hemiplegia and hemiparesis following other cerebrovascular disease affecting left non-dominant side; I10 Essential (primary) hypertension; E78.5 Hyperlipidemia, unspecified; E11.9 Type 2 diabetes mellitus without complications; D64.9 Anemia, unspecified; I35.0 Nonrheumatic aortic (valve) stenosis; Z78.1 Physical restraint status; R41.0 Disorientation, unspecified
CPT/HCPCS: 70450; 80048; 80053; 80061; 82550; 82553; 82962; 83735; 84100; 84443; 84484; 85025; 87081; 92526; 92610; 93005; 93306; 97110; 97163; 97165; 97530